=== PATIENT | female | born 1925 | race Caucasian/White ===

== ENCOUNTER 2016-10-10 08:48 | Inpatient (IN) | payer OTHER, MEDICARE ==
[~2016-10-10] VITALS: Ht 165.1 cm; Wt 85.7 kg
[~2016-10-10 08:48] MED LIST: CHLORTHALIDONE25 M1 PO; CIPRO 500MG TA500 MG PO; COLACE100 M1 PO; DURAGESIC25 MCG TOP; ENDOCET 325 MG-1 TA1 PO; FENTANYL1 EAC4 TOP; FOLIC ACID1 M1 PO; GABAPENTIN800 M1 PO; K-TAB ER20 MEQ PO; LASIX20 MG PO; LASIX40 M1 PO; LIDODERM1 EACH TOP; LOPRESSOR100 M1 PO; MAGNESIUM OXID400 M1 PO; METHOTREXA50 MG/2 ML PO; METHOTREXATE 22.5 MG PO; METHOTREXATE2.5 M2 PO; METHOTREXATE2.5 MG PO; METHOTREXATE25 MG/M2 PO; MILK OF MAGNESI30 ML PO; MONUROL3 GM PO; NEXIUM 40MG40 MG PO; NEXIUM40 M1 PO; OXYCODONE5 MG PO; PRADAXA150 M1 PO; PREDNISONE5 M1 PO; SENNA8.6 M3 PO; SERTRALINE HCL50 MG PO; TYLENOL500 MG PO; VITAMIN D250000 UNIT PO; ZOFRAN ODT4 MG SL
--- NOTE | 2016-10-10 08:59 | ED GENERAL ADULT ---
History of Present Illness General Chief Complaint: Dyspnea (COPD, CHF, Other) Stated Complaint: BIBA, DIFF BREATHING Source: patient, family, old records, EMS, [facility]10 Exam Limitations: no limitations Vital Signs & Intake/Output Vital Signs & Intake/Output Vital Signs Date Time Temp Pulse Resp B/P B/P Pulse O2 O2 Flow FiO2 Mean Ox Delivery Rate 10/10 1006 99.1 88 12 110/63 94 Nasal 2.0L Cannula 10/10 0923 92 Nasal 3.0L Cannula 10/10 0855 99.2 94 2 110/58 92 Non 2.0L ReBreather Allergies Coded Allergies: Sulfa (Sulfonamide Antibiotics) (UNKNOWN 10/10/16) Reconcile Medications Alprazolam (Xanax) 0.25 MG TABLET 0.5 TAB PO QPM SLEEP (Reported) Chlorthalidone 25 MG TABLET 0.5 TAB PO DAILY EDEMA (Reported) Dabigatran Etexilate Mesylate (Pradaxa 150 MG) 150 MG CAPSULE 1 CAP PO BID AFIB (Reported) Docusate Sodium (Colace) 100 MG CAPSULE 2 CAP PO DAILY CONSTIPATION (Reported ) Docusate Sodium (Colace) 100 MG CAPSULE 1 CAP PO QPM CONSTIPATION (Reported) Ergocalciferol (Vitamin D2) (Vitamin D2) 50,000 UNIT CAPSULE 1 CAP PO Q30D VITAMIN SUPPORT (Reported) Esomeprazole (Nexium) 40 MG CAPSULE.DR 1 CAP PO DAILY ACID REFLUX (Reported) Fentanyl 75 MCG/HOUR PATCH.TD72 1 PAT TOP Q3D PAIN (Reported) Folic Acid 1 MG TABLET 1 TAB PO DAILY SUPPLEMENT (Reported) Furosemide (Lasix) 40 MG TABLET 1 TAB PO DAILY WATER PILL (Reported) Gabapentin 800 MG TABLET 1 TAB PO TID NEUROPATHY (Reported) Lidocaine (Lidoderm) 5 % ADH..PATCH 1 PAT TOP DAILY PAIN (Reported) may wear up to 12 hours Magnesium Oxide 400 MG TABLET 1 TAB PO DAILY SUPPLEMENT (Reported) Melatonin 3 MG TABLET 2 TAB PO QPM SLEEP (Reported) Methotrexate 2.5 MG TABLET 6 TAB PO QWED ARTHRITIS (Reported) Metoprolol Tartrate (Lopressor) 100 MG TABLET 1 TAB PO BID AFIB (Reported) Potassium Chloride (K-Tab ER) 20 MEQ TABLET.ER 2 TAB PO BID SUPPLEMENT ( Reported) Prednisone 5 MG TABLET 1 TAB PO DAILY ARTHRITIS (Reported) Sennosides (Senna) 8.6 MG TABLET 1 TAB PO DAILY CONSTIPATION (Reported) Sertraline HCl 50 MG TABLET 2.5 TAB PO DAILY DEPRESSION (Reported) Triage Note: PT BIBA FROM [facility] FOR CHANGE IN MENTAL STATUS, SOB AND VOMITING. PT DENIES ABDOMINAL PAIN. PER [facility], PT WAS DIFFICULT TO AROUSE THIS AM. PER EMS PT 02 SATS WERE IN MID 80'S UPON THEIR ARRIVAL. PLACED ON NRB AND SATS IMPROVED. QUESTION OF ASPIRATION Triage Nurses Notes Reviewed? yes HPI: Patient sent in from her extended care facility for evaluation of lethargy, vomiting and shortness of breath. This morning on rounds a noticed that she was very hard to arouse. Patient then began dry heaving and vomiting. Patient then became short of breath. Patient is chronically on 2 L of oxygen. Patient was increased to 4 L. When EMS arrived her sats were 90% on 4 L. They placed her on a nonrebreather 15 L and the patient became more responsive. Patient continued to try use. Patient's only complaint is feeling nauseous. Patient is not answering any other questions. Patient is moaning. Patient is moving all 4 extremities but not following commands. ED Sepsis Exam Date of Focused Sepsis Exam: 10/10/16 Time of Focused Sepsis Exam: 919 Sepsis Cardiac Exam: AFIB Sepsis Resp Exam: COURSE CRACKLES Sepsis Cap Refill Exam: <2 Sec Sepsis Peripheral Pulse Exam: Normal Sepsis Peripheral Pulse Location: Radial Sepsis Skin Color Exam: Normal for Ethnicity Skin Temp/Moisture Exam: Hot/Dry Past History Travel History Traveled to [place] past 21 day No Medical History Any Pertinent Medical History? 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 FATHER, , Age 60+; Cause: Throat cancer. Relation not specified for: Diabetes mellitus (DM) Fam hx-ischem heart disease Hx Contributory? No Review of Systems Review of Systems Constitutional: Reports: see HPI, fever. Respiratory: Reports: see HPI, short of breath. GI: Reports: see HPI, vomiting. Physical Exam Physical Exam General Appearance: well developed/nourished, alert, awake, anxious, moderate distress Head: atraumatic, normal appearance Eyes: Bilateral: PERRL, EOMI, other (ANICTERIC). Ears, Nose, Throat: normal pharynx, DRY MUCOSA Neck: normal inspection, supple, full range of motion Respiratory: normal breath sounds, chest non-tender, no respiratory distress, lungs clear Cardiovascular: regular rate/rhythm, normal peripheral pulses Gastrointestinal: normal bowel sounds, soft, non-tender, no organomegaly Back: normal inspection, normal range of motion Extremities: normal inspection, normal capillary refill, normal range of motion, pedal edema Neurologic/Psych: no motor/sensory deficits, awake, alert, disoriented x 3 Skin: intact, normal color, cyanosis Lymphatic: no anterior cervical ritu Core Measures ACS in differential dx? No CVA/TIA Diagnosis: No Severe Sepsis Present: Yes Septic Shock Present: No Progress Differential Diagnoses I considered the following diagnoses in my evaluation of the patient: [ ASPIRATION PNEUMONIA, SEPSIS, UTI, AMI, CHOLECYSTITIS] Plan of Care: Orders Procedure Date/time Status LACTIC ACID 10/10 1159 Active ARTERIAL BLOOD GAS (GEN) 10/10 0859 Complete Telemetry/Glass Or Mirror Inspector 10/10 0859 Active Day, Insertion/Removal/Asses 10/10 0859 Active CULTURE,URINE 10/10 0859 Active BLOOD CULTURE 10/10 0859 Active URINALYSIS 10/10 0859 Active TROPONIN LEVEL 10/10 0859 Complete LIPASE 10/10 0859 Complete LACTIC ACID 10/10 0859 Complete COMPREHENSIVE METABOLIC PANEL 10/10 0859 Complete CBC WITHOUT DIFFERENTIAL 10/10 0859 Complete B-TYPE NATRIURETIC PEP (BNP) 10/10 0859 Complete AMYLASE 10/10 0859 Complete EKG 10/10 0849 Active Laboratory Tests 10/10/16 1012: Urine Color Pending, Urine Clarity Pending, Urine pH Pending, Ur Specific Dieterich Pending, Urine Protein Pending, Urine Ketones Pending, Urine Nitrite Pending, Urine Bilirubin Pending, Urine Urobilinogen Pending, Ur Leukocyte Esterase Pending, Ur Microscopic SEDIMENT EXAMINED, Urine RBC Pending, Urine Hemoglobin Pending, Urine Glucose Pending 10/10/16 0938: pH 7.39, pCO2 73 *H, pO2 59 L, HCO3 43 H, ABG O2 Sat (Measured) 90.0 L, P-50 (Temp Corrected) N, Carboxyhemoglobin 1.4 L, O2 Concentration % 4LPM, O2 Delivery Method NC, Phlebotomy Draw Site RIGHT BRACHIAL 10/10/16 0910: Anion Gap 6, Estimated GFR > 60, BUN/Creatinine Ratio 24.0, Glucose 151 H, Lactic Acid 1.3, Calcium 8.5, Total Bilirubin 0.6, AST 12 L, ALT 24, Alkaline Phosphatase 60, Troponin I < 0.01, Yxk-Y-Eyagybhphyq Pept 2440 H, Total Protein 5.7 L, Albumin 3.2 L, Globulin 2.5, Albumin/Globulin Ratio 1.3, Amylase 75, Lipase 199, CBC w Diff NO MAN DIFF REQ, RBC 3.63 L, MCV 88.3, MCH 27.1, RDW 18.3 H, MPV 9.0, Gran % 86.5 H, Lymphocytes % 4.8 L, Monocytes % 5.6, Eosinophils % 2.6, Basophils % 0.5, Absolute Granulocytes 10.7 H, Absolute Lymphocytes 0.6 L, Absolute Monocytes 0.7 H, Absolute Eosinophils 0.3, Absolute Basophils 0.1, PUBS MCHC 30.8 L Microbiology 10/10 1012 URINE ROUT: Urine Culture - RECD 10/11 919 BLOOD: Blood Culture - RECD 10/10 09 BLOOD: Blood Culture - RECD Diagnostic Imaging: Viewed by Me: Radiology Read. Discussed w/RAD: Radiology Read. CXR Impression: PATIENT: ERIC DARLING PRESENT AGE: 89 PATIENT ACCOUNT NO: [id number] : [birth year] LOCATION: [facility] ORDERING PHYSICIAN: JULIETTE RUSSO MD SERVICE DATE: 10/10/16 EXAM TYPE: RAD - XRY- PORTABLE CHEST XRAY EXAMINATION: XR PORTABLE CHEST CLINICAL INFORMATION: Shortness of breath, fever and vomiting. COMPARISON: CXR from 02/07/2014 TECHNIQUE: Portable AP view of the chest was obtained. FINDINGS: Lungs are hypoinflated resulting in crowding of bronchovascular structures in the bases. There is wall calcification of the tracheobronchial tree - a relatively common finding in elderly patients. This may partially account for interstitial prominence in both lungs. There are linear areas of discoid atelectasis within the right lung base and lingula. No focal airspace opacification is identified. No pulmonary edema or pleural effusion. Cardiac silhouette is mildly enlarged and the left pericardial fat pad extends toward the costophrenic angle. There is prominent fat within the superior mediastinum. Thoracic aorta is calcified. Bone density is diffusely decreased and there is chronic, severe osteoarthritis of glenohumeral joints. No pneumoperitoneum. IMPRESSION: 1. Lungs are suboptimally evaluated due to patient body habitus and hypoinflation. 2. Mild atelectasis within the lung bases. No overt pneumonia. 3. Mild cardiomegaly. DICTATED BY: DUNG CANAS MD DATE/TIME DICTATED:10/10/161002 OTR OWNER OPERATOR:MARCUS DATE/TIME TRANSCRIBED:10/10/161002 CONFIDENTIAL, DO NOT COPY WITHOUT APPROPRIATE AUTHORIZATION. <Electronically signed in Other Vendor System> SIGNED BY: DUNG CANAS MD 10/10/16 1011 Initial ED EKG: AFIB, nonspecific ST T wave chg Prior EKG: unchanged Rhythm Strip: atrial fibrillation Comments: ACCORDING TO LAST DISCHARGE SUMMARY, PT HAS A HISTORY OF CHF. UNKNOWN WHAT HER LAST EF WAS. SHE HAS ALSO BEEN STARTED ON O2 SINCE HER LAST VISIT. WILL GIVE BOLUSES OF FLUIDS BUT WANT TO GO EASY UNTIL WE HAVE A BETTER UNDERSTANDING OF HER FLUID STATUS. Departure Departure Disposition: STILL A PATIENT Condition: Guarded Clinical Impression Primary Impression: Aspiration pneumonia Referrals: ROJELIO SAUCEDO,OLIVIA Early (PCP/Family) Departure Forms: Customer Survey General Discharge Information Admission Note Spoke With: RAPHAEL TROY MD Documentation of Exam: Documentation of any treatments & extenuating circumstances including Concerns Regarding Discharge (functional status, medication knowledge or non-compliance, living conditions, etc.) that warrant an admission rather than observation: [iv abx, pulm consult, pt is requiring increased o2 demands, ] Critical Care Note Critical Care Note Critical Care Time: non-applicable
[2016-10-10] MEDS ORDERED: COLACE100 M1 PO (09:13)
[2016-10-10] MEDS ORDERED: MELATONIN3 M4 PO (09:15)
[2016-10-10] MEDS ORDERED: XANAX0.25 M1 PO (09:17)
[2016-10-10 09:24] LABS: ABSOLUTE BASOPHIL COUNT 0.1 /CUMM (0.0-0.2); ABSOLUTE EOSINOPHIL COUNT 0.3 /CUMM (0.0-0.7); ABSOLUTE GRANULOCYTE CT 10.7 /CUMM (1.4-6.5); ABSOLUTE LYMPH COUNT 0.6 /CUMM (1.2-3.4); ABSOLUTE MONOCYTE COUNT 0.7 /CUMM (0.10-0.60); BASOPHIL % 0.5 % (0.0-2.0); EOSINOPHIL % 2.6 % (0-5); MEAN CORPUSCULAR HGB 27.1 PG (27.0-31.0); MEAN CORPUSCULAR HGB CONC 30.8 G/DL (33.0-37.0); MEAN CORPUSCULAR VOLUME 88.3 FL (81.0-99.0); PLATELET COUNT 269 /CUMM (130-400); RBC DISTRIBUTION WIDTH 18.3 % (11.5-14.5); WHITE BLOOD CELL COUNT 12.4 /CUMM (4.8-10.8)
[2016-10-10 09:41] LABS: GRANULOCYTE % 86.5 % (42.2-75.2)
[2016-10-10 09:43] LABS: RED BLOOD CELL CT 3.63 /CUMM (4.20-5.40)
--- NOTE | 2016-10-10 10:11 | RADIOLOGY REPORT ---
EXAMINATION: XR PORTABLE CHEST CLINICAL INFORMATION: Shortness of breath, fever and vomiting. COMPARISON: CXR from 02/07/2014 TECHNIQUE: Portable AP view of the chest was obtained. FINDINGS: Lungs are hypoinflated resulting in crowding of bronchovascular structures in the bases. There is wall calcification of the tracheobronchial tree - a relatively common finding in elderly patients. This may partially account for interstitial prominence in both lungs. There are linear areas of discoid atelectasis within the right lung base and lingula. No focal airspace opacification is identified. No pulmonary edema or pleural effusion. Cardiac silhouette is mildly enlarged and the left pericardial fat pad extends toward the costophrenic angle. There is prominent fat within the superior mediastinum. Thoracic aorta is calcified. Bone density is diffusely decreased and there is chronic, severe osteoarthritis of glenohumeral joints. No pneumoperitoneum. IMPRESSION: 1. Lungs are suboptimally evaluated due to patient body habitus and hypoinflation. 2. Mild atelectasis within the lung bases. No overt pneumonia. 3. Mild cardiomegaly.
--- NOTE | 2016-10-10 12:17 | History & Physical ---
SANDRO PEDROZA MD 10/10/16 1216: General Information and HPI MD Statement: I have seen and personally examined ERIC DARLING and documented this H&P. The patient is a 89 year old F who presented with a patient stated chief complaint of [episode of unresponsiveness followed by multiple episode of vomiting and hypoxia]. Source of Information: patient, family, old records Exam Limitations: no limitations, DEAFNESS History of Present Illness: This is 89-year-old obese female with past medical history of hypertension, diastolic heart failure, A. fib on PREDAXA, rheumatoid arthritis maintain on methotrexate and chronic prednisone, anemia, ESBL UTI, spinal stenosis on chronic pain medication including fentanyl patch, ? History of emphysema was sent in from [facility] after she found lethargic and unresponsive followed by multiple episode of nausea and bilious nonbloody vomiting and hypoxia. This morning on routine evaluation by nursing staff patient found minimally responsive to verbal command. Upon waking her up, she became nauseous and started throwing up initially brownish bilious nonbloody vomiting followed by multiple episode of yellowish nonbloody vomiting. After that patient started having dry heaving and became hypoxic. Her oxygen increased to 4 L (at baseline uses 2 L), EMS called, upon arrival noted saturating 90% on 4 L supplemental O2. Patient was put on nonrebreather mask and was brought to the ER for further evaluation. On exam in ER patient noted somnolent but easily aroused on verbal command. Patient had partial deafness so it was hard to communicate with her but she could hear on yelling. Patient denied any recent fever, chills, productive cough, abdominal pain. She complains of dry heaving and nausea but feels better after receiving medication in ER. She claims she was treated with antibiotic for UTI probably 1-2 months prior to admission and was also evaluated for pneumonia probably a month ago but x-ray noted negative. She denies any urinary burning, dysuria. She has intermittent urinary frequency which is unchanged from the past. She is alert and oriented 3. Patient's daughter and son (POA) were at bedside. Of note patient has been on fentanyl patch for her spinal stenosis, and claims her episode of being unresponsiveness are quite often for past couple months. Allergies/Medications Allergies: Coded Allergies: Sulfa (Sulfonamide Antibiotics) (UNKNOWN 10/10/16) Home Med list Alprazolam (Xanax) 0.25 MG TABLET 0.5 TAB PO QPM SLEEP (Reported) Chlorthalidone 25 MG TABLET 0.5 TAB PO DAILY EDEMA (Reported) Dabigatran Etexilate Mesylate (Pradaxa 150 MG) 150 MG CAPSULE 1 CAP PO BID AFIB (Reported) Docusate Sodium (Colace) 100 MG CAPSULE 2 CAP PO DAILY CONSTIPATION (Reported ) Docusate Sodium (Colace) 100 MG CAPSULE 1 CAP PO QPM CONSTIPATION (Reported) Ergocalciferol (Vitamin D2) (Vitamin D2) 50,000 UNIT CAPSULE 1 CAP PO Q30D VITAMIN SUPPORT (Reported) Esomeprazole (Nexium) 40 MG CAPSULE.DR 1 CAP PO DAILY ACID REFLUX (Reported) Fentanyl 75 MCG/HOUR PATCH.TD72 1 PAT TOP Q3D PAIN (Reported) Folic Acid 1 MG TABLET 1 TAB PO DAILY SUPPLEMENT (Reported) Furosemide (Lasix) 40 MG TABLET 1 TAB PO DAILY WATER PILL (Reported) Gabapentin 800 MG TABLET 1 TAB PO TID NEUROPATHY (Reported) Lidocaine (Lidoderm) 5 % ADH..PATCH 1 PAT TOP DAILY PAIN (Reported) may wear up to 12 hours Magnesium Oxide 400 MG TABLET 1 TAB PO DAILY SUPPLEMENT (Reported) Melatonin 3 MG TABLET 2 TAB PO QPM SLEEP (Reported) Methotrexate 2.5 MG TABLET 6 TAB PO QWED ARTHRITIS (Reported) Metoprolol Tartrate (Lopressor) 100 MG TABLET 1 TAB PO BID AFIB (Reported) Potassium Chloride (K-Tab ER) 20 MEQ TABLET.ER 2 TAB PO BID SUPPLEMENT ( Reported) Prednisone 5 MG TABLET 1 TAB PO DAILY ARTHRITIS (Reported) Sennosides (Senna) 8.6 MG TABLET 1 TAB PO DAILY CONSTIPATION (Reported) Sertraline HCl 50 MG TABLET 2.5 TAB PO DAILY DEPRESSION (Reported) Compliance With Home Meds: FAIR Past History Travel History Traveled to [place] past 21 day No Medical History Neurological: GENERAL WEAKNESS EENT: NONE Cardiovascular: AFIB, CHF, hypertension, ANEMIA HEART FAILURE Respiratory: NONE Gastrointestinal: GERD Hepatic: NONE Renal: NONE Musculoskeletal: osteoarthritis, rheumatoid arthritis, spinal stenosis, ARTHRITIS Psychiatric: NONE Endocrine: NONE KENNEL ASSISTANT/Reproductive: UTI, UROSEPSIS History of MRSA: No History of VRE: No History of CDIFF: No Isolation History: Contact (ESBL) Pneumonia Vaccine: 03/30/07 Influenza Vaccine: 02/27/13 Surgical History Surgical History: cholecystectomy, hernia repair-inguinal Past Family/Social History Family History Relations & Conditions if any MOTHER, , Age 60+; Cause: Myocardial infarct. FATHER, , Age 60+; Cause: Throat cancer. Relation not specified for: Diabetes mellitus (DM) Fam hx-ischem heart disease Psychosocial History Where do you live? [facility] Services at Home: Physical Therapy ETOH Use: denies use Illicit Drug Use: denies illicit drug use Living Will? yes Power of Associate Director Of Development/HCP? yes Name of POA/HCP: son (david darling) Functional Ability ADLs Needs Assist: dressing, eating, toileting, bathing. Ambulation: walker Review of Systems Review of Systems Constitutional: Reports: see HPI. Denies: chills, fever. EENTM: Reports: hearing changes. Denies: visual changes. Cardiovascular: Denies: chest pain, orthopena, palpitations, peripheral edema, syncope. Respiratory: Reports: cough, short of breath. Denies: sputum production, wheezing. GI: Reports: nausea, vomiting. Denies: abdominal pain. Genitourinary: Reports: frequency. Denies: dysuria, urgency. Musculoskeletal: Reports: back pain. Skin: Denies: rash. Neurological/Psychological: Denies: headache, numbness. Hematologic/Endocrine: Denies: bleeding. Exam & Diagnostic Data Last 24 Hrs of Vital Signs/I&O Vital Signs Date Time Temp Pulse Resp B/P B/P Pulse O2 O2 Flow FiO2 Mean Ox Delivery Rate 10/10 1109 99.4 88 20 111/76 96 Venti Mask 10/10 1006 99.1 88 12 110/63 94 Nasal 2.0L Cannula 10/10 0923 92 Nasal 3.0L Cannula 10/10 0855 99.2 94 2 110/58 92 Non 2.0L ReBreather Intake & Output 10/10 1600 10/10 0800 10/10 0000 Intake Total 500 Output Total 300 Balance 200 Intake, IV 500 Output, Urine 300 Patient 189 lb Weight Weight Reported by Patient Measurement Method Physical Exam General Appearance Alert, Oriented X3, Cooperative, No Acute Distress Skin No Rashes Skin Temp/Moisture Exam: Warm/Dry Sepsis Skin Exam (color): Normal for Ethnicity HEENT Atraumatic, PERRLA, EOMI, Mucous Membr. moist/pink Neck Supple, No JVD Lymphatic Cervical nl Cardiovascular Normal S1, Normal S2, No Murmurs Lungs Normal Air Movement, bilateral crackles Abdomen Normal Bowel Sounds, Soft, No Tenderness Neurological Normal Speech, Strength at 5/5 X4 Ext, Normal Tone, Sensation Intact, Cranial Nerves 3-12 NL Extremities Normal Pulses, trace pedal edema Vascular Normal Pulses, Pulses Symmetrical Sepsis Peripheral Pulse Location: Posterior Tibialis Sepsis Peripheral Pulse Exam: Bounding Last 24 Hrs of Labs/Jerry: Laboratory Tests 10/10/16 1012: Urine Color YEL, Urine Clarity CLDY H, Urine pH 6.5, Ur Specific [place] 1.020, Urine Protein NEG, Urine Ketones NEG, Urine Nitrite POS H, Urine Bilirubin NEG, Urine Urobilinogen 0.2, Ur Leukocyte Esterase SMALL H, Ur Microscopic SEDIMENT EXAMINED, Urine RBC RARE, Urine WBC 5-10 H, Urine Bacteria PACKD H, Urine Hemoglobin TRACE-LYSED, Urine Glucose NEG 10/10/16 0938: pH 7.39, pCO2 73 *H, pO2 59 L, HCO3 43 H, ABG O2 Sat (Measured) 90.0 L, P-50 (Temp Corrected) N, Carboxyhemoglobin 1.4 L, O2 Concentration % 4LPM, O2 Delivery Method NC, Phlebotomy Draw Site RIGHT BRACHIAL 10/10/16 0910: Anion Gap 6, Estimated GFR > 60, BUN/Creatinine Ratio 24.0, Glucose 151 H, Lactic Acid 1.3, Calcium 8.5, Total Bilirubin 0.6, AST 12 L, ALT 24, Alkaline Phosphatase 60, Troponin I < 0.01, Aps-R-Uiwiqsefsts Pept 2440 H, Total Protein 5.7 L, Albumin 3.2 L, Globulin 2.5, Albumin/Globulin Ratio 1.3, Amylase 75, Lipase 199, CBC w Diff NO MAN DIFF REQ, RBC 3.63 L, MCV 88.3, MCH 27.1, RDW 18.3 H, MPV 9.0, Gran % 86.5 H, Lymphocytes % 4.8 L, Monocytes % 5.6, Eosinophils % 2.6, Basophils % 0.5, Absolute Granulocytes 10.7 H, Absolute Lymphocytes 0.6 L, Absolute Monocytes 0.7 H, Absolute Eosinophils 0.3, Absolute Basophils 0.1, PUBS MCHC 30.8 L Microbiology 10/10 1012 URINE ROUT: Urine Culture - RECD 10/11 919 BLOOD: Blood Culture - RECD 10/10 0810 BLOOD: Blood Culture - RECD Diagnostic Data EKG Results Atrial fibrillation at rate of 80s, normal axis, no acute ST-T changes, QTC 458 CXR Results Chest x-ray was poor quality due to hypoinflation of the lungs, noted mild atelectatic days in lung bases, mild cardiomegaly without any signs of pneumonia Assessment/Plan Assessment: This is 89-year-old obese female with past medical history of diastolic heart failure, A. fib, rheumatoid arthritis on chronic methotrexate and prednisone, anemia, ESBL UTI, spinal stenosis was sent in from [facility] with chief complaint of unresponsiveness followed by an episode of bilious vomiting followed by an episode of hypoxia with significant increase in O2 requirement, and WBC suggestive of mild leukocytosis likely suggestive of aspiration pneumonitis/ pneumonia. Patient also noted having dirty urine on urinalysis which could be asymptomatic bacteriuria with chronic colonization of ESBL in absence of any urinary symptoms or fever. 1. Acute on chronic hypoxic respiratory failure due to Aspiration pneumonia Admit to general medicine floor Continue supplemental O2 Keep O2 sat above 92% TRC Continue IV Unasyn for suspected aspiration pneumonia/pneumonitis Follow-up blood cx and urine strep and Legionella Follow-up sputum culture Aspiration precaution Swallow eval in a.m., patient passed bedside swallow, will continue regular diet with aspiration precaution If patient remains hypoxic consider CTA chest to rule out PE although it's unlikely due to as patient is on anticoagulation 2. Altered mental status - Now improved - Likely in setting of opiates as patient is on fentanyl patch for spinal stenosis - Monitor mental status, if noted further episode of change in mental status consider decreasing the dose of fentanyl patch or try nonopiate analgesics 3. Acute gastroenteritis - Patient received 500 mL fluid in ER -Continue Zofran when necessary for nausea - Aspiration precaution 4. Asymptomatic bacteriuria - Patient denies any fever or urinary symptoms - UA suggest cloudy urine with positive nitrite and small leukocyte esterase, WBC 5-10 and packed bacteria - Patient has history of ESBL UTI, suspect ESBL for urine culture obtain in ER - But due to no symptoms, I suspect this is colonization which need not to be treated at this point - But monitor for any signs of infection like fever,, leukocytosis, change in mental status, urinary burning or frequency---> if that happens patient may need to be started on antibiotic covering ESBL likely meropenem 5. Normocytic anemia - Likely anemia of chronic disease due to rheumatoid arthritis - H&H stable - Monitor H&H 6. History of congestive heart failure - Patient on physical exam noted having bilateral crackles and trace pedal edema , lab suggests elevated proBNP - We'll give 1 dose of IV Lasix, and continue home dose Lasix 40 mg daily from tomorrow morning - Strict NICOLE's - Daily weight - Keep K > 4, mg > 2 repeat as needed 7. Rheumatoid arthritis - Continue weekly dose of methotrexate 15 mg - Continue prednisone 5 mg daily 8. Spinal stenosis - Continue pain management with fentanyl patch, Lidoderm patch, gabapentin - Bowel regimen to avoid constipation 9. Hypertension Continue home dose chlorthalidone, Lasix and metoprolol 10. Atrial fibrillation - Continue metoprolol 100 mg twice a day for rate control - Continue PRADEXA 150 mg twice a day for anticoagulation 11. Anxiety/depression Continue Xanax 0.125 at bedtime and Zoloft 2.5 mg daily 12. DVT prophylaxis on pradaxa 13. DNR/DNI As Ranked By This Provider Problem List: 1. Aspiration pneumonia 2. Rheumatoid arthritis 3. Bacteriuria 4. Depression 5. Atrial fibrillation Core Measures/Miscellaneous Acute Coronary Syndrome ACS Diagnosis: No Cerebrovascular Accident CVA/TIA Diagnosis: No Congestive Heart Failure CHF Diagnosis: No Venous Thromboembolism VTE Risk Factors: Age > 40, Immobility, paresis No [facility] VTE prophylaxis d/t: No contraindications No VTE Pharm Prophylaxis d/t: No contraindications VTE Diagnosis: No VTE Type: NONE VTE Confirmed by (Test): NONE Severe Sepsis Severe Sepsis Present: Yes Septic Shock Septic Shock Present: No Miscellaneous Documentation Attending Case Discussed With: RAPHAEL TROY MD Primary Care Physician: OLIVIA SERRATO MD Patient sees these Specialists none Level of Patient Care: General Medicine Resident Review Statement Resident Statement: examined this patient, discussed with family, reviewed EMR data (avail), reviewed images, amended to note Other Findings: see hpi RAPHAEL TROY MD 10/10/160: Attending MD Review Statement Attending Statement Attending Statement: examined this patient, discuss w/resident/PA/MEN'S LOCKER ROOM ATTENDANT, agreed w/resident/PA/MEN'S LOCKER ROOM ATTENDANT, reviewed EMR data (avail) Attending Assessment/Plan: Hypoxic respiratory failure after episodes of vomiting with mild left shift and a negative chest xray likely suggest aspiration pneumonia. She will be admitted for IV antibiotics Unasyn and if she persist to be hypoxic we may then consider CT chest or possibly CTA.
[2016-10-10 13:45] VITALS: BP 138/56
[2016-10-10 21:47] VITALS: BP 110/62
--- NOTE | 2016-10-10 22:19 | Admission Certification ---
Admission Certification Certification Statement - As attending physician, I certify that at the time of - admission, based on clinical presentation, severity of - symptoms, need for further diagnostic testing and - therapeutic interventions, and risk of adverse outcomes - without in-hospital treatment, in my clinical assessment, - this patient requires an acute hospital stay for a minimum - of two nights or longer. I have also considered psychsocial - factors such as support system, advanced age, financial - issues, cognitive issues, and failed out-patient treatments, - past re-admission history, safety of patient, and lack of - compliance as applicable. Specific rationale supporting this admission is: Aspiration pneumonia
[2016-10-11 06:16] VITALS: BP 110/68
--- NOTE | 2016-10-11 07:34 | PN- Housestaff ---
Subjective Follow-up For: vomitting and dyspnea Complaints: nausea Subjective: patient followed up by me today. this am, patient was still nauseous and was given zofran, which later subsided. she was at her baseline oxygen level, and did not have any other complaints. she was not in distress and was able to speak in full sentences. Review of Systems Constitutional: Reports: see HPI. Objective Last 24 Hrs of Vital Signs/I&O Vital Signs Date Time Temp Pulse Resp B/P B/P Pulse O2 O2 Flow FiO2 Mean Ox Delivery Rate 10/11 1920 96 Nasal 3.0L Cannula 10/11 1445 98.0 78 20 112/64 93 Nasal 3.0L Cannula 10/11 1021 67 110/68 10/11 0841 96 Nasal 3.0L Cannula 10/11 0800 96 Nasal 3.0L Cannula 10/11 0616 98.0 67 20 110/68 98 10/11 0402 98 Venti Mask 50% 10/11 0000 96 Venti Mask 50% 10/10 2303 Venti Mask 50% 10/10 2227 90 110/62 Intake & Output 10/11 1600 10/11 0800 10/11 0000 Intake Total 720 390 100 Output Total 436 110 5202 Balance 170 140 -1100 Intake, IV 120 150 100 Intake, Oral 600 240 Number 0 1 Bowel Movements Output, Urine 151 585 8337 Physical Exam General Appearance: Alert, Oriented X3, Cooperative, No Acute Distress Cardiovascular: Regular Rate, Normal S1, Normal S2 Lungs: Clear to Auscultation, Normal Air Movement Abdomen: Normal Bowel Sounds, Soft, No Tenderness Neurological: grossly intact Assessment/Plan Assessment: This is 89-year-old obese female with past medical history of diastolic heart failure, A. fib, rheumatoid arthritis on chronic methotrexate and prednisone, anemia, ESBL UTI, spinal stenosis was sent in from [facility] with chief complaint of unresponsiveness followed by an episode of bilious vomiting followed by an episode of hypoxia with significant increase in O2 requirement, and WBC suggestive of mild leukocytosis likely suggestive of aspiration pneumonitis/ pneumonia. Patient also noted having dirty urine on urinalysis which could be asymptomatic bacteriuria with chronic colonization of ESBL in absence of any urinary symptoms or fever. 1. Acute on chronic hypoxic respiratory failure, possibly due to Aspiration pneumonia, Gram negative bacteria cannot be ruled out currently; getting better today -continue monitoring in general medicine floor -Continue supplemental O2 -Keep O2 sat above 92% -TRC -Continue IV Unasyn for suspected aspiration pneumonia/pneumonitis -Follow-up blood cx and urine strep and Legionella -Follow-up sputum culture -continue Aspiration precaution -patient passed swallow eval, is on regular diet currently - repeating a CXR, and if this shows PNA continue abx else, will consider stopping abx if no fever, leucocytosis, and no more resp distress, as she is on 3L/min oxygen at home 2. Altered mental status - Now improved - Likely in setting of opiates as patient is on fentanyl patch for spinal stenosis - decreased fentanyl dose from 75 to 50 today - Monitor mental status, if noted further episode of change in mental status consider decreasing the dose of fentanyl patch or try nonopiate analgesics 3. Acute gastroenteritis - Patient received 500 mL fluid in ER - Continue Zofran when necessary for nausea - continue Aspiration precaution 4. Asymptomatic bacteriuria - Patient denies any fever or urinary symptoms - UA suggest cloudy urine with positive nitrite and small leukocyte esterase, WBC 5-10 and packed bacteria - Patient has history of ESBL UTI, suspect ESBL for urine culture obtain in ER - But due to no symptoms, I suspect this is colonization which need not to be treated at this point - But monitor for any signs of infection like fever,, leukocytosis, change in mental status, urinary burning or frequency---> if that happens patient may need to be started on antibiotic covering ESBL likely meropenem 5. Normocytic anemia - Likely anemia of chronic disease due to rheumatoid arthritis - H&H stable - Monitor H&H 6. History of congestive heart failure - Patient on physical exam noted having bilateral crackles and trace pedal edema , lab suggests elevated proBNP - She received 1 dose of IV Lasix yesterday, and continue home dose Lasix 40 mg daily from this AM - Strict I/O's - Daily weight - Keep K > 4, mg > 2 repeat as needed 7. Rheumatoid arthritis - Continue weekly dose of methotrexate 15 mg - Continue prednisone 5 mg daily 8. Spinal stenosis - Continue pain management with fentanyl patch (decreased dose), Lidoderm patch, gabapentin - Bowel regimen to avoid constipation 9. Hypertension Continue home dose chlorthalidone, Lasix and metoprolol 10. Atrial fibrillation - Continue metoprolol 100 mg twice a day for rate control - Continue PRADEXA 150 mg twice a day for anticoagulation 11. Anxiety/depression Continue Xanax 0.125 at bedtime and Zoloft 2.5 mg daily 12. DVT prophylaxis on pradaxa 13. DNR/DNI Problem List: 1. Nausea & vomiting 2. Acute respiratory failure Pain Ratin Pain Location: back when present Pain Goal: Pain 4 or less Pain Plan: home meds ordered, fentanyl dose reduced today Tomorrow's Labs & Rationales: CBC, BEP to replete lytes
[2016-10-11 08:35] LABS: ABSOLUTE BASOPHIL COUNT 0 /CUMM (0.0-0.2); ABSOLUTE EOSINOPHIL COUNT 0.2 /CUMM (0.0-0.7); ABSOLUTE GRANULOCYTE CT 8.6 /CUMM (1.4-6.5); ABSOLUTE LYMPH COUNT 0.7 /CUMM (1.2-3.4); ABSOLUTE MONOCYTE COUNT 0.7 /CUMM (0.10-0.60); BASOPHIL % 0.3 % (0.0-2.0); EOSINOPHIL % 2.1 % (0-5); HEMATOCRIT 30.2 % (37-47); MEAN CORPUSCULAR HGB 27.4 PG (27.0-31.0); MEAN CORPUSCULAR HGB CONC 31.1 G/DL (33.0-37.0); MEAN CORPUSCULAR VOLUME 88.2 FL (81.0-99.0); MEAN PLATELET VOLUME 9.3 FL (7.4-10.4); PLATELET COUNT 245 /CUMM (130-400); RBC DISTRIBUTION WIDTH 18.2 % (11.5-14.5); RED BLOOD CELL CT 3.42 /CUMM (4.20-5.40); WHITE BLOOD CELL COUNT 10.3 /CUMM (4.8-10.8)
--- NOTE | 2016-10-11 09:24 | PN- Att Addend ---
Attending Addendum Attending Brief Note Patient is awake and alert this morning responding appropriately to all the questions. She remains on 3 L of oxygen which is about her baseline according to the patient. She also reports chronic nausea and vomiting that is intermittent. General Appearance: Alert, No Acute Distress Skin: Grossly normal HEENT: [place] Neck: Supple, No JVD Cardiovascular: Regular Rate, Normal S1, Normal S2, No Murmurs Lungs: Decreased air entry in bilateral basilar crackles Abdomen: Normal Bowel Sounds, Soft, No Tenderness Neurological: Normal Speech, Strength at 5/5 X4 Ext, Cranial Nerves 3-12 NL, Reflexes 2+ Extremities: No Clubbing, No Cyanosis, No Edema Assessment Nausea and vomiting is chronic according to patient and she remains on 3 L of oxygen that is her baseline. It is possible she might have had aspiration pneumonitis secondary to vomiting. We will get a repeat PA lateral x-ray today to rule out pneumonia and plan antibiotics accordingly. Chronic hypercarbia and lethargy likely secondary to combination of COPD and pain medication. We will decreased fentanyl patch to 50 g once daily. Plan Repeat x-ray PA lateral view Decrease fentanyl patch to 50 g once daily Swallow evaluation Decision for antibiotic pending above Aspiration precautions Replete potassium Continue other home medications DVT prophylaxis Current Medications Sig/Dean Start time Last Medication Dose Route Stop Time Status Admin Albuterol Sulfate 3 ML BID 10/11 1000 AC 10/11 INH 0835 Alprazolam 0.125 MG QPM 10/10 2199 AC 10/10 PO 10/179 7 Ampicillin Sodium/ 3,000 MG Q6H 10/10 1600 AC 10/11 Sulbactam Sodium IV 0337 Sodium Chloride 100 ML Ampicillin Sodium/ 0 .STK-MED ONE 10/10 1005 DC Sulbactam Sodium .ROUTE Ampicillin Sodium/ 3,000 MG ONCE ONE 10/10 0945 DC 10/10 Sulbactam Sodium IV 10/10 1014 1006 Sodium Chloride 100 ML Chlorthalidone 12.5 MG DAILY 10/11 1000 AC PO Dabigatran 150 MG BID 10/10 2200 AC 10/10 PO 2226 Dabigatran 150 MG BID 10/10 1153 DC PO Docusate Sodium 200 MG DAILY 10/11 1000 AC PO Fentanyl Citrate 50 MCG Q72H 10/13 2030 AC TOP Fentanyl Citrate 75 MCG Q3D 10/11 1000 DC TOP Fentanyl Citrate 75 MCG Q72H 10/10 2030 DC 10/10 TOP 2041 Folic Acid 1 MG DAILY 10/11 1000 AC PO Furosemide 40 MG DAILY 10/11 1000 AC PO Furosemide 0 .STK-MED ONE 10/10 1224 ID IV Furosemide 40 MG ONCE ONE 10/10 1215 ID 10/10 IV 10/10 1216 1233 Gabapentin 800 MG Q8 10/10 1400 AC 10/11 PO 0542 Heparin Sodium 5,000 UNIT Q8 10/10 1400 CAN (Porcine) SC Lidocaine 1 PAT DAILY 10/11 1000 CAN EXT Lidocaine 1 PAT AT BEDTIME 10/10 2245 AC 10/10 EXT 2307 Magnesium Oxide 400 MG DAILY 10/10 1156 10/10 PO 1627 Melatonin 6 MG QPM 10/10 2200 10/10 PO 2228 Methotrexate 15 MG QWED 10/13 0700 AC PO Metoprolol Tartrate 100 MG BID 10/10 2200 10/10 PO 2227 Omeprazole 40 MG DAILY AC 10/10 1201 AC 10/11 PO 0542 Ondansetron HCl 4 MG Q6P PRN 10/10 1215 10/11 IV 0807 Patient Medication 1 UNIT ONE NR 10/10 1245 [facility] ED 10/10 1300 Patient Medication 1 UNIT ONE NR 10/10 1245 [facility] ED 10/10 1300 Patient Medication 1 UNIT ONE NR 10/10 1245 [facility] ED 10/10 1300 Patient Medication 1 UNIT ONE NR 10/10 1245 [facility] ED 10/10 1300 Potassium Chloride 40 MEQ DAILY 10/10 1157 10/10 PO 1627 Prednisone 5 MG DAILY 10/10 1157 10/10 PO 1628 Senna/Docusate Sodium 1 TAB BID PRN 10/10 1200 AC PO Sertraline HCl 125 MG DAILY 10/10 1158 10/10 PO 1628 Sodium Chloride 500 ML BOLUS ONE 10/10 0915 ID 10/10 IV 10/10 1014 0904 Laboratory Tests 10/11 10/10 10/10 0657 1230 1012 Chemistry Sodium (137 - 145 mmol/L) 140 Potassium (3.5 - 5.1 mmol/L) 3.0 L Chloride (98 - 107 mmol/L) 84 L Carbon Dioxide (mmol/L) Pending Anion Gap (5 - 16) Pending BUN (7 - 17 mg/dL) 13 Creatinine (0.5 - 1.0 mg/dL) 0.6 Estimated GFR (>60 ml/min) > 60 BUN/Creatinine Ratio (7 - 25 %) 21.7 Lactic Acid (0.7 - 2.1 mmol/L) 1.2 Hematology CBC w Diff Pending WBC Pending RBC Pending Hgb Pending Hct Pending MCV Pending MCH Pending RDW Pending Plt Count Pending MPV Pending PUBS MCHC Pending Urines Urine Color (YEL,AMB,STR) YEL Urine Clarity (CLEAR) CLDY H Urine pH (5.0 - 8.0) 6.5 Ur Specific [place] (1.001 - 1.035) 1.020 Urine Protein (NEG,<30 MG/DL) NEG Urine Ketones (NEG) NEG Urine Nitrite (NEG) POS H Urine Bilirubin (NEG) NEG Urine Urobilinogen (0.1 - 1.0 EU/dl) 0.2 Ur Leukocyte Esterase (NEG) SMALL H Ur Microscopic SEDIMENT EXAMINED Urine RBC (0 - 5 /HPF) RARE Urine WBC (0 - 2 /HPF) 5-10 H Urine Bacteria (NEG/NONE) PACKD H Urine Hemoglobin (NEG) TRACE-LYSED Urine Glucose (N MG/DL) NEG 10/10 0938 Blood Gas pH (7.35 - 7.45 PH) 7.39 pCO2 (35 - 45 TORR) 73 *H pO2 (80 - 100 TORR) 59 L HCO3 (21 - 28 MEQ/L) 43 H ABG O2 Sat (Measured) (>96.0 %) 90.0 L P-50 (Temp Corrected) N Carboxyhemoglobin (1.5 - 5.0 %) 1.4 L O2 Concentration % 4LPM O2 Delivery Method NC Miscellaneous Phlebotomy Draw Site RIGHT BRACHIAL Vital Signs Date Time Temp Pulse Resp B/P B/P Pulse O2 O2 Flow FiO2 Mean Ox Delivery Rate 10/11 0841 96 Nasal 3.0L Cannula 10/11 0800 96 Nasal 3.0L Cannula 10/11 0616 98.0 67 20 110/68 98 10/11 0402 98 Venti Mask 50% 10/11 0000 96 Venti Mask 50% 10/10 2303 Venti Mask 50% 10/10 2227 90 110/62 10/10 2147 98.1 94 20 110/62 96 Venti Mask 50% 10/10 1600 94 Venti Mask 50% 10/10 1345 99.1 84 22 138/56 94 Venti Mask 50% 05/ 1336 94 Venti Mask 50% 05/14 1235 99.2 85 18 120/78 97 Venti Mask 50% / 1109 99.4 88 20 111/76 96 Venti Mask 05/ 1006 99.1 88 12 110/63 94 Nasal 2.0L Cannula
--- NOTE | 2016-10-11 10:29 | RADIOLOGY REPORT ---
EXAMINATION: XR CHEST CLINICAL INFORMATION: Follow-up for possible aspiration. COMPARISON: Chest x-ray most recent prior dated 10/10/2016 TECHNIQUE: 2 views of the chest were obtained. FINDINGS: Moderate cardiomegaly. Central pulmonary vascular congestion. Patchy opacity noted again in the left lower lung including retrocardiac region. Evaluation is limited due to patient's body habitus. Findings are compatible with hazy infiltrate or atelectasis. Minimal blunting of the costophrenic sulcus may be secondary to trace fluid or pleural thickening. Severe degenerative changes bilateral shoulders.. IMPRESSION: 1. Stable cardiomegaly and central pulmonary vascular congestion. 2. Stable hazy opacity left lower lung compatible with infiltrate or atelectasis. Trace effusion or pleural thickening.
[2016-10-11 11:44] LABS: GRANULOCYTE % 83.5 % (42.2-75.2)
--- NOTE | 2016-10-11 13:07 | Discharge Summary ---
Visit Information Visit Dates Admission Date: 10/10/16 Discharge Date: 10/16/2016 Hospital Course Course Attending Physician: RAPHAEL TROY MD Primary Care Physician: OLIVIA SERRATO MD Hospital Course: This is 89-year-old obese female with past medical history of diastolic heart failure, A. fib, rheumatoid arthritis on chronic methotrexate and prednisone, anemia, ESBL UTI, spinal stenosis who was sent in from [facility] with chief complaint of unresponsiveness followed by an episode of bilious vomiting followed by an episode of hypoxia with significant increase in O2 requirement, and WBC suggestive of mild leukocytosis likely suggestive of aspiration pneumonitis/ pneumonia. Patient also noted having dirty urine on urinalysis which could be asymptomatic bacteriuria with chronic colonization of ESBL in absence of any urinary symptoms or fever. She was admitted to the general medicine floor and he managed her for the following conditions. Acute on chronic hypoxic respiratory failure Most likely due to Aspiration pneumonia. She received respiratory care and was kept nothing by mouth pending swallow evaluation. Patient passed the formal swallow evaluation and was started on regular foods with good intake without any evidence of aspiration. The patient was started on IV Unasyn for aspiration pneumonia probably aspirated during vomiting episodes. The patient oxygen demand decreased progressively and with the second day she was saturating well on room air. n Altered mental status Patient was observed to be less responsive in the [facility] facility. She was put on aspiration precautions. We saw that the altered mental status can be a result of the opiates and fentanyl patch. We decreased the doses and the patient improved significantly through the course of the stay in the hospital. She will be discharged with reduced pain medication doses. Acute gastroenteritis Patient received 500 mL fluid in ER. She was started on Zofran when necessary for nausea. Aspiration precaution were executed. The patient diarrhea resolved and there was no vomiting during the course of the stay. Asymptomatic bacteriuria On presentation UA was suggestive of urinary tract infection. Patient denied any fever or urinary symptoms. Patient has history of ESBL UTI. Given that the patient was symptomatic on presentation we did not treat her UTI suspect in colonization. The patient was monitored closely for any urinary symptoms OR features suggestive of sepsis development. History of congestive heart failure Patient on physical exam on admission noted to have bilateral crackles and trace pedal edema, lab showed elevated proBNP. The patient received 1 dose of IV Lasix and then continued on home dose Lasix 40 mg daily. She is being discharged to continue with the same medication at home. Rheumatoid arthritis Patient has history of rheumatoid arthritis. She was kept on her home medication weekly dose of methotrexate 15 mg and prednisone 5 mg daily. Spinal stenosis Patient has history of spinal stenosis. He is on chronic pain medications at home. During the course of this admission she was continued on her home medication but her fentanyl patch was reduced to 50 g once daily to address altered mental status which she thought could have been a result of overdose of pain medication. She was continued on her bowel regimen and will be discharged on the same medications. Hypertension Patient has history of hypertension. During the course of this admission she was continued on her home dose chlorthalidone, Lasix and metoprolol. Blood pressure remained stable. She'll be discharged to continue with the same medication at home. Atrial fibrillation Patient has history of atrial fibrillation. During the course of the hospital stay the patient was continued on metoprolol 100 mg twice a day for rate control and PRADEXA 150 mg twice a day for anticoagulation. She is being discharged to continue with the same medications. Anxiety/depression She has history of depression and anxiety. Patient was kept on her home medication Xanax 0.125 at bedtime and Zoloft 2.5 mg daily, she is discharged on same medication. Complications: None Allergies: Coded Allergies: Sulfa (Sulfonamide Antibiotics) (UNKNOWN 10/10/16) Pertinent Lab Results: Laboratory Tests 10/12 10/11 10/10 0730 0657 1230 Chemistry Sodium (137 - 145 mmol/L) Pending 140 Potassium (3.5 - 5.1 mmol/L) Pending 3.0 L Chloride (98 - 107 mmol/L) Pending 84 L Carbon Dioxide (22 - 30 mmol/L) Pending 47 H Anion Gap (5 - 16) Pending 9 BUN (7 - 17 mg/dL) Pending 13 Creatinine (0.5 - 1.0 mg/dL) Pending 0.6 Estimated GFR (>60 ml/min) > 60 BUN/Creatinine Ratio (7 - 25 %) Pending 21.7 Lactic Acid (0.7 - 2.1 mmol/L) 1.2 Hematology CBC w Diff Pending NO MAN DIFF REQ WBC (4.8 - 10.8 /CUMM) Pending 10.3 RBC (4.20 - 5.40 /CUMM) Pending 3.42 L Hgb (12.0 - 16.0 G/DL) Pending 9.4 L Hct (37 - 47 %) Pending 30.2 L MCV (81.0 - 99.0 FL) Pending 88.2 MCH (27.0 - 31.0 PG) Pending 27.4 RDW (11.5 - 14.5 %) Pending 18.2 H Plt Count (130 - 400 /CUMM) Pending 245 MPV (7.4 - 10.4 FL) Pending 9.3 Gran % (42.2 - 75.2 %) 83.5 H Lymphocytes % (20.5 - 51.1 %) 7.2 L Monocytes % (1.7 - 9.3 %) 6.9 Eosinophils % (0 - 5 %) 2.1 Basophils % (0.0 - 2.0 %) 0.3 Absolute Granulocytes (1.4 - 6.5 /CUMM) 8.6 H Absolute Lymphocytes (1.2 - 3.4 /CUMM) 0.7 L Absolute Monocytes (0.10 - 0.60 /CUMM) 0.7 H Absolute Eosinophils (0.0 - 0.7 /CUMM) 0.2 Absolute Basophils (0.0 - 0.2 /CUMM) 0 PUBS MCHC (33.0 - 37.0 G/DL) Pending 31.1 L 10/10 10/10 1012 0938 Blood Gas pH (7.35 - 7.45 PH) 7.39 pCO2 (35 - 45 TORR) 73 *H pO2 (80 - 100 TORR) 59 L HCO3 (21 - 28 MEQ/L) 43 H ABG O2 Sat (Measured) (>96.0 %) 90.0 L P-50 (Temp Corrected) N Carboxyhemoglobin (1.5 - 5.0 %) 1.4 L O2 Concentration % 4LPM O2 Delivery Method NC Miscellaneous Phlebotomy Draw Site RIGHT BRACHIAL Urines Urine Color (YEL,AMB,STR) YEL Urine Clarity (CLEAR) CLDY H Urine pH (5.0 - 8.0) 6.5 Ur Specific [place] (1.001 - 1.035) 1.020 Urine Protein (NEG,<30 MG/DL) NEG Urine Ketones (NEG) NEG Urine Nitrite (NEG) POS H Urine Bilirubin (NEG) NEG Urine Urobilinogen (0.1 - 1.0 EU/dl) 0.2 Ur Leukocyte Esterase (NEG) SMALL H Ur Microscopic SEDIMENT EXAMINED Urine RBC (0 - 5 /HPF) RARE Urine WBC (0 - 2 /HPF) 5-10 H Urine Bacteria (NEG/NONE) PACKD H Urine Hemoglobin (NEG) TRACE-LYSED Urine Glucose (N MG/DL) NEG 10/10 0910 Chemistry Sodium (137 - 145 mmol/L) 142 Potassium (3.5 - 5.1 mmol/L) 3.6 Chloride (98 - 107 mmol/L) 87 L Carbon Dioxide (22 - 30 mmol/L) 49 H Anion Gap (5 - 16) 6 BUN (7 - 17 mg/dL) 12 Creatinine (0.5 - 1.0 mg/dL) 0.5 Estimated GFR (>60 ml/min) > 60 BUN/Creatinine Ratio (7 - 25 %) 24.0 Glucose (65 - 99 mg/dL) 151 H Lactic Acid (0.7 - 2.1 mmol/L) 1.3 Calcium (8.4 - 10.2 mg/dL) 8.5 Total Bilirubin (0.2 - 1.3 mg/dL) 0.6 AST (14 - 36 U/L) 12 L ALT (9 - 52 U/L) 24 Alkaline Phosphatase (<127 U/L) 60 Troponin I (< 0.11 ng/ml) < 0.01 [id number] Pept (<125 pg/mL) 2440 H Total Protein (6.3 - 8.2 g/dL) 5.7 L Albumin (3.5 - 5.0 g/dL) 3.2 L Globulin (1.9 - 4.2 gm/dL) 2.5 Albumin/Globulin Ratio (1.1 - 2.2 %) 1.3 Amylase (30 - 110 U/L) 75 Lipase (23 - 300 U/L) 199 Hematology CBC w Diff NO MAN DIFF REQ WBC (4.8 - 10.8 /CUMM) 12.4 H RBC (4.20 - 5.40 /CUMM) 3.63 L Hgb (12.0 - 16.0 G/DL) 9.9 L Hct (37 - 47 %) 32.0 L MCV (81.0 - 99.0 FL) 88.3 MCH (27.0 - 31.0 PG) 27.1 RDW (11.5 - 14.5 %) 18.3 H Plt Count (130 - 400 /CUMM) 269 MPV (7.4 - 10.4 FL) 9.0 Gran % (42.2 - 75.2 %) 86.5 H Lymphocytes % (20.5 - 51.1 %) 4.8 L Monocytes % (1.7 - 9.3 %) 5.6 Eosinophils % (0 - 5 %) 2.6 Basophils % (0.0 - 2.0 %) 0.5 Absolute Granulocytes (1.4 - 6.5 /CUMM) 10.7 H Absolute Lymphocytes (1.2 - 3.4 /CUMM) 0.6 L Absolute Monocytes (0.10 - 0.60 /CUMM) 0.7 H Absolute Eosinophils (0.0 - 0.7 /CUMM) 0.3 Absolute Basophils (0.0 - 0.2 /CUMM) 0.1 PUBS MCHC (33.0 - 37.0 G/DL) 30.8 L Disposition Summary Disposition Principal Diagnosis: Aspiration pneumonia Altered mental status Additional Diagnosis: Spinal stenosis Hypertension Rheumatoid arthritis Congestive heart failure Atrial fibrillation Discharge Disposition: SNF Discharge Instructions General Discharge Information Code Status: Do Not Resucitate/Intubat Patient's Diet: Regular diet Patient's Activity: As tolerated Follow-Up Instructions/Appts: Please call and make a follow-up with your primary care physician within one week after discharge Medications at Discharge Discharge Medications: Stop taking the following medications: Fentanyl (Fentanyl) 75 MCG/HOUR PATCH.TD72 On the skin Every 3 days Continue taking these medications: Chlorthalidone (Chlorthalidone) 25 MG TABLET 0.5 Tablet ORAL DAILY Comments: Last Taken: 10/16/16 Time: 1100AM Docusate Sodium (Colace) 100 MG CAPSULE 2 Capsule ORAL DAILY Comments: Last Taken: 10/16/16 Time: 1000AM Folic Acid (Folic Acid) 1 MG TABLET 1 Tablet ORAL DAILY Comments: Last Taken: 10/16/16 Time: 1100AM Gabapentin (Gabapentin) 800 MG TABLET 1 Tablet ORAL THREE TIMES DAILY Lidocaine (Lidoderm) 5 % ADH..PATCH 1 Patch On the skin DAILY Instructions: may wear up to 12 hours Comments: Last Taken: 10/16/16 Time: 2200PM Magnesium Oxide (Magnesium Oxide) 400 MG TABLET 1 Tablet ORAL DAILY Comments: Last Taken: 10/16/16 Time: 1100AM Metoprolol Tartrate (Lopressor) 100 MG TABLET 1 Tablet ORAL TWICE DAILY Comments: Last Taken: 10/16/16 Time: 1100AM Potassium Chloride (K-Tab ER) 20 MEQ TABLET.ER 2 Tablet ORAL TWICE DAILY Comments: Last Taken: 10/16/16 Time: 1100AM Dabigatran Etexilate Mesylate (Pradaxa 150 MG) 150 MG CAPSULE 1 Capsule ORAL TWICE DAILY Comments: Last Taken: 10/16/16 Time: 1100AM Prednisone (Prednisone) 5 MG TABLET 1 Tablet ORAL DAILY Comments: Last Taken: 10/16/16 Time: 1100AM Sennosides (Senna) 8.6 MG TABLET 1 Tablet ORAL DAILY Comments: NOT GIVEN Sertraline HCl (Sertraline HCl) 50 MG TABLET 2.5 Tablet ORAL DAILY Comments: Last Taken: 10/15/16 Time: 1100AM Ergocalciferol (Vitamin D2) (Vitamin D2) 50,000 UNIT CAPSULE 1 Capsule ORAL ONCE A MONTH Comments: NOT GIVEN Furosemide (Lasix) 40 MG TABLET 1 Tablet ORAL DAILY Esomeprazole (Nexium) 40 MG CAPSULE.DR 1 Capsule ORAL DAILY Comments: NOT GIVEN Methotrexate (Methotrexate) 2.5 MG TABLET 6 Tablet ORAL EVERY TUESDAY Comments: NOT GIVEN Docusate Sodium (Colace) 100 MG CAPSULE 1 Capsule ORAL Every night Comments: Last Taken: 10/16/16 Time: 1100AM Melatonin (Melatonin) 3 MG TABLET 2 Tablet ORAL Every night Comments: NOT GIVEN Alprazolam (Xanax) 0.25 MG TABLET 0.5 Tablet ORAL Every night Comments: Last Taken: 10/15/16 Time:2200PM Start taking the following new medications: Fentanyl (Fentanyl) 50 MCG/HOUR PATCH.TD72 1 Patch On the skin Every 3 days Qty = 30 No Refills Comments: FENTANYL PATCH PLACED 10/14/16 @1330PM Copies To: RAPHAEL TROY MD
[2016-10-11 14:45] VITALS: BP 112/64
[2016-10-11 23:33] VITALS: BP 110/68
[2016-10-12 06:33] VITALS: BP 112/72
--- NOTE | 2016-10-12 07:16 | PN- Housestaff ---
Subjective Follow-up For: vomitting and dyspnea Complaints: no complaints Subjective: I followed up and examined the patient today. This morning, patient is asymptomatic, nausea has stopped, she is still at her baseline level of oxygen at 3 L/m. Vitals have been stable, no overnight issues. She did mention that she has double vision to the attending. Review of Systems Constitutional: Reports: see HPI. Objective Last 24 Hrs of Vital Signs/I&O Vital Signs Date Time Temp Pulse Resp B/P B/P Pulse O2 O2 Flow FiO2 Mean Ox Delivery Rate 10/12 1600 94 Nasal 3.0L Cannula 10/12 1541 97.9 78 18 118/70 95 Room Air 10/12 1055 94 Nasal 3.0L Cannula 10/12 1007 93 137/64 10/12 1003 93 137/64 10/12 0800 96 Nasal 3.0L Cannula 10/12 0633 97.6 66 18 112/72 96 Room Air 10/12 0000 Nasal 3.0L Cannula 10/11 2333 98.3 94 20 110/68 96 Nasal 3.0L Cannula 10/11 2321 90 110/86 Intake & Output 10/12 1600 10/12 0800 10/12 0000 Intake Total 800 370 250 Output Total 100 300 500 Balance 700 70 -250 Intake, IV 200 130 Intake, Oral 600 240 250 Number 1 Bowel Movements Output, Urine 100 300 500 Physical Exam General Appearance: Alert, Oriented X3, Cooperative, No Acute Distress Other Physical Findings: Cardiovascular: Regular Rate, Normal S1, Normal S2 Lungs: Clear to Auscultation, Normal Air Movement Abdomen: Normal Bowel Sounds, Soft, No Tenderness Neurological: grossly intact, eye and EOM examination normal Current Medications: Current Medications Sig/Dean Start time Last Medication Dose Route Stop Time Status Admin Albuterol Sulfate 3 ML BID 10/11 1000 AC 10/12 INH 1051 Alprazolam 0.125 MG QPM 10/10 2200 AC 10/11 PO 10/17 2159 2328 Amoxicillin/ 500 MG Q8 10/12 1400 AC 10/12 Clavulanate Potassium PO 10/15 2300 1342 Ampicillin Sodium/ 3,000 MG Q6H 10/12 0130 DC 10/12 Sulbactam Sodium IV 0825 Sodium Chloride 100 ML Ampicillin Sodium/ 3,000 MG Q6H 10/10 1600 DC 10/11 Sulbactam Sodium IV 1930 Sodium Chloride 100 ML Chlorthalidone 12.5 MG DAILY 10/11 1000 AC 10/12 PO 1007 Dabigatran 150 MG BID 10/10 2200 AC 10/12 PO 1007 Docusate Sodium 200 MG DAILY 10/11 1000 AC 10/12 PO 1007 Fentanyl Citrate 50 MCG Q72H 10/11 1300 AC 10/11 TOP 1309 Folic Acid 1 MG DAILY 10/11 1000 AC 10/12 PO 1007 Furosemide 40 MG DAILY 10/11 1000 AC 10/12 PO 1007 Gabapentin 800 MG Q8 10/10 1400 AC 10/12 PO 1342 Lidocaine 1 PAT AT BEDTIME 10/10 2245 AC 10/11 EXT 2320 Magnesium Oxide 400 MG DAILY 10/10 1156 AC 10/12 PO 1007 Melatonin 6 MG QPM 10/10 2200 AC 10/11 PO 2318 Methotrexate 15 MG QWED 10/13 0700 AC PO Metoprolol Tartrate 100 MG BID 10/10 2200 AC 10/12 PO 1007 Omeprazole 40 MG DAILY AC 10/10 1201 AC 10/12 PO 0605 Ondansetron HCl 4 MG Q6P PRN 10/10 1215 AC 10/11 IV 0807 Potassium Chloride 10 MEQ Q1H 10/12 1330 DC 10/12 IV 10/12 1431 1731 Potassium Chloride 20 MEQ ONCE ONE 10/12 1330 DC 10/12 PO 10/12 1331 1342 Potassium Chloride 40 MEQ DAILY 10/10 1157 AC 10/12 PO 1007 Prednisone 5 MG DAILY 10/10 1157 AC 10/12 PO 1006 Senna/Docusate Sodium 1 TAB BID PRN 10/10 1200 AC 10/12 PO 0605 Sertraline HCl 125 MG DAILY 10/10 1158 AC 10/12 PO 1007 Last 24 Hrs of Lab/Jerry Results Last 24 Hrs of Labs/Mics: Laboratory Tests 10/12/16 0730: Anion Gap 6, Estimated GFR > 60, BUN/Creatinine Ratio 24.0, CBC w Diff NO MAN DIFF REQ, RBC 3.41 L, MCV 88.2, MCH 27.6, RDW 18.4 H, MPV 9.1, Gran % 80.3 H, Lymphocytes % 7.4 L, Monocytes % 7.1, Eosinophils % 4.8, Basophils % 0.4, Absolute Granulocytes 8.3 H, Absolute Lymphocytes 0.8 L, Absolute Monocytes 0.7 H, Absolute Eosinophils 0.5, Absolute Basophils 0, PUBS MCHC 31.3 L Assessment/Plan Assessment: This is 89-year-old obese female with past medical history of diastolic heart failure, A. fib, rheumatoid arthritis on chronic methotrexate and prednisone, anemia, ESBL UTI, spinal stenosis was sent in from [facility] with chief complaint of unresponsiveness followed by an episode of bilious vomiting followed by an episode of hypoxia with significant increase in O2 requirement, and WBC suggestive of mild leukocytosis likely suggestive of aspiration pneumonitis/ pneumonia. Patient also noted having dirty urine on urinalysis which could be asymptomatic bacteriuria with chronic colonization of ESBL in absence of any urinary symptoms or fever. 1. Acute on chronic hypoxic respiratory failure, possibly due to Aspiration pneumonia, Gram negative bacteria cannot be ruled out currently; getting better today -continue monitoring in general medicine floor -Continue supplemental O2, now at baseline -Keep O2 sat above 92% -TRC -IV Unasyn stopped today as she is not febrile, does not have leukocytosis, and is not at increase oxygen demand -Follow-up blood cx -Follow-up sputum culture -continue Aspiration precaution -patient passed swallow eval, is on regular diet currently - repeat CXR shows left lower lobe haziness, but the patient is not symptomatic anymore and will not be pursuing only the images 2. Altered mental status - Now improved - Likely in setting of opiates as patient is on fentanyl patch for spinal stenosis - decreased fentanyl dose from 75 to 50 yesterday and the patient is much alert today - Monitor mental status, if noted further episode of change in mental status consider decreasing the dose of fentanyl patch or try nonopiate analgesics 3. Acute gastroenteritis - Patient received 500 mL fluid in ER - Continue Zofran when necessary for nausea - continue Aspiration precaution 4. Asymptomatic bacteriuria - Patient denies any fever or urinary symptoms -Urine culture showed Escherichia coli that is ESBL, but the patient is asymptomatic so will not be treating it - Patient has history of ESBL UTI, suspect ESBL for urine culture obtain in ER - But due to no symptoms, I suspect this is colonization which need not to be treated at this point - But monitor for any signs of infection like fever,, leukocytosis, change in mental status, urinary burning or frequency---> if that happens patient may need to be started on antibiotic covering ESBL likely meropenem 5. Normocytic anemia - Likely anemia of chronic disease due to rheumatoid arthritis - H&H stable - Monitor H&H 6. History of congestive heart failure - Patient on physical exam noted having bilateral crackles and trace pedal edema , lab suggests elevated proBNP - She received 1 dose of IV Lasix 10/10/16, and continue home dose Lasix 40 mg daily from this AM - Strict I/O's - Daily weight - Keep K > 4, mg > 2 repeat as needed 7. Rheumatoid arthritis - Continue weekly dose of methotrexate 15 mg - Continue prednisone 5 mg daily 8. Spinal stenosis - Continue pain management with fentanyl patch (decreased dose), Lidoderm patch, gabapentin - Bowel regimen to avoid constipation 9. Hypertension Continue home dose chlorthalidone, Lasix and metoprolol 10. Atrial fibrillation - Continue metoprolol 100 mg twice a day for rate control - Continue PRADEXA 150 mg twice a day for anticoagulation 11. Anxiety/depression Continue Xanax 0.125 at bedtime and Zoloft 2.5 mg daily 12. DVT prophylaxis on pradaxa 13. DNR/DNI Problem List: 1. Nausea & vomiting 2. Acute respiratory failure Pain Ratin Pain Location: - Pain Goal: Pain 4 or less Pain Plan: prn Tomorrow's Labs & Rationales: CBC, BEP to replete lytes jerzy K
[2016-10-12] MEDS ORDERED: FENTANYL1 EAC3 TOP (08:09)
[2016-10-12 08:10] LABS: ABSOLUTE BASOPHIL COUNT 0 /CUMM (0.0-0.2); ABSOLUTE EOSINOPHIL COUNT 0.5 /CUMM (0.0-0.7); ABSOLUTE GRANULOCYTE CT 8.3 /CUMM (1.4-6.5); ABSOLUTE LYMPH COUNT 0.8 /CUMM (1.2-3.4); ABSOLUTE MONOCYTE COUNT 0.7 /CUMM (0.10-0.60); BASOPHIL % 0.4 % (0.0-2.0); EOSINOPHIL % 4.8 % (0-5); GRANULOCYTE % 80.3 % (42.2-75.2); HEMATOCRIT 30.1 % (37-47); MEAN CORPUSCULAR HGB 27.6 PG (27.0-31.0); MEAN CORPUSCULAR HGB CONC 31.3 G/DL (33.0-37.0); MEAN CORPUSCULAR VOLUME 88.2 FL (81.0-99.0); MEAN PLATELET VOLUME 9.1 FL (7.4-10.4); PLATELET COUNT 256 /CUMM (130-400); RBC DISTRIBUTION WIDTH 18.4 % (11.5-14.5); RED BLOOD CELL CT 3.41 /CUMM (4.20-5.40); WHITE BLOOD CELL COUNT 10.4 /CUMM (4.8-10.8)
--- NOTE | 2016-10-12 08:13 | Patient Discharge Instructions ---
Discharge Instructions General Discharge Information Special Instructions: Please call and make a follow-up with your primary care physician within one week after discharge. Please note that your fentanyl patch dose has been reduced Acute Coronary Syndrome Inclusion Criteria At DC or during hospital stay patient has or had the following: ACS DIAGNOSIS No Discharge Core Measures Meds if any: Prescribed or Continued at Discharge Meds if any: NOT Prescribed or Continued at Discharge Congestive Heart Failure Inclusion Criteria At DC or during hospital stay patient has or had the following: CHF DIAGNOSIS No Discharge Core Measures Meds if any: Prescribed or Continued at Discharge Meds if any: NOT Prescribed or Continued at Discharge Cerebrovascular accident Inclusion Criteria At DC or during hospital stay patient has or had the following: CVA/TIA Diagnosis No Discharge Core Measures Meds if any: Prescribed or Continued at Discharge Meds if any: NOT Prescribed or Continued at Discharge Venous thromboembolism Inclusion Criteria VTE Diagnosis No VTE Type NONE VTE Confirmed by (Test) NONE Discharge Core Measures - Per Current guidelines, there needs to be overlap - treatment for the first 5 days of Warfarin therapy. - If discharged on Warfarin prior to 5 days of - overlap therapy, the patient will need to be - assessed for post discharge needs including - *Post discharge parental anticoagulation - *Warfarin and/or parental anticoagulation education - *Follow up date to check INR post discharge At least 5 days overlap therapy as Inpatient No Meds if any: Prescribed or Continued at Discharge Note: Overlap Therapy is Warfarin and Anticoagulant Meds if any: NOT Prescribed or Continued at Discharge
--- NOTE | 2016-10-12 09:33 | PN- Att Addend ---
Attending Addendum Attending Brief Note Patient is awake and alert this morning responding appropriately to all the questions. She remains on 3 L of oxygen which is about her baseline according to the patient. She also reports chronic nausea and vomiting that is intermittent. She complains of feeling the surrounding caving in that is intermittent. General Appearance: Alert, No Acute Distress Skin: Grossly normal HEENT: PEERLA Neck: Supple, No JVD Cardiovascular: Regular Rate, Normal S1, Normal S2, No Murmurs Lungs: Decreased air entry in bilateral basilar crackles Abdomen: Normal Bowel Sounds, Soft, No Tenderness Neurological: Normal Speech, Strength at 5/5 X4 Ext, Cranial Nerves 3-12 NL, Reflexes 2+ Extremities: No Clubbing, No Cyanosis, No Edema Assessment Nausea and vomiting is chronic according to patient and she remains on 3 L of oxygen that is her baseline. It is possible she might have had aspiration pneumonitis secondary to vomiting. Repeat x-ray shows left lower infiltrate and she has responded to IV antibiotics. We will transition patient to Augmentin and get a swallow evaluation. She will need a GI evaluation and possible outpatient endoscopy for chronic nausea and vomiting symptoms. Patient describes visual symptoms that is intermittent. We will plan an inpatient neurological evaluation. Plan Change to Augmentin for total 7 days Swallow evaluation pending Continue fentanyl patch to 50 g once daily GI and neurology consult ADAL Day Aspiration precautions Replete potassium Continue other home medications DVT prophylaxis Current Medications Sig/Dean Start time Last Medication Dose Route Stop Time Status Admin Albuterol Sulfate 3 ML BID 10/11 1000 AC 10/11 INH 1920 Alprazolam 0.125 MG QPM 10/10 2200 AC 10/11 PO 10/17 2159 2328 Ampicillin Sodium/ 3,000 MG Q6H 10/12 0130 AC 10/12 Sulbactam Sodium IV 0825 Sodium Chloride 100 ML Ampicillin Sodium/ 3,000 MG Q6H /14 1600 DC 10/11 Sulbactam Sodium IV 1930 Sodium Chloride 100 ML Chlorthalidone 12.5 MG DAILY 10/11 1000 AC 05/ PO 1022 Dabigatran 150 MG BID 10/10 2200 AC 05/ PO 2318 Docusate Sodium 200 MG DAILY 10/11 1000 AC 05/15 PO 1021 Fentanyl Citrate 50 MCG Q72H 10/13 2030 DC TOP Fentanyl Citrate 50 MCG Q72H 10/11 1300 AC 10/11 TOP 1309 Folic Acid 1 MG DAILY 10/11 1000 AC 10/11 PO 1021 Furosemide 40 MG DAILY 10/11 1000 AC 10/11 PO 1021 Gabapentin 800 MG Q8 10/10 1400 AC 10/12 PO 0605 Lidocaine 1 PAT AT BEDTIME 10/10 2245 AC 10/11 EXT 2320 Magnesium Oxide 400 MG DAILY 10/10 1156 AC 10/11 PO 1021 Melatonin 6 MG QPM 10/10 2200 AC 10/11 PO 2318 Methotrexate 15 MG QWED 10/13 0700 AC PO Metoprolol Tartrate 100 MG BID 10/10 2200 AC 10/11 PO 2321 Omeprazole 40 MG DAILY AC 10/10 1201 AC 10/12 PO 0605 Ondansetron HCl 4 MG Q6P PRN 10/10 1215 AC 10/11 IV 0807 Patient Medication 1 ED .STK-MED ONE 10/11 1359 DC Teaching ED 10/11 1400 Potassium Chloride 40 MEQ ONCE ONE 10/11 1345 CAN PO 10/11 1346 Potassium Chloride 20 MEQ ONCE ONE 10/11 1215 DC 10/11 PO 10/11 1216 1217 Potassium Chloride 20 MEQ ONCE ONE 10/11 1215 DC 10/11 PO 10/11 1216 1216 Potassium Chloride 40 MEQ DAILY 10/10 1157 AC 10/11 PO 1021 Prednisone 5 MG DAILY 10/10 1157 AC 10/11 PO 1021 Senna/Docusate Sodium 1 TAB BID PRN 10/10 1200 AC 10/12 PO 0605 Sertraline HCl 125 MG DAILY 10/10 1158 AC 10/11 PO 1022 Laboratory Tests 10/12 0730 Chemistry Sodium (137 - 145 mmol/L) 139 Potassium (3.5 - 5.1 mmol/L) 3.1 L Chloride (98 - 107 mmol/L) 87 L Carbon Dioxide (22 - 30 mmol/L) 46 H Anion Gap (5 - 16) 6 BUN (7 - 17 mg/dL) 12 Creatinine (0.5 - 1.0 mg/dL) 0.5 Estimated GFR (>60 ml/min) > 60 BUN/Creatinine Ratio (7 - 25 %) 24.0 Hematology CBC w Diff NO MAN DIFF REQ WBC (4.8 - 10.8 /CUMM) 10.4 RBC (4.20 - 5.40 /CUMM) 3.41 L Hgb (12.0 - 16.0 G/DL) 9.4 L Hct (37 - 47 %) 30.1 L MCV (81.0 - 99.0 FL) 88.2 MCH (27.0 - 31.0 PG) 27.6 RDW (11.5 - 14.5 %) 18.4 H Plt Count (130 - 400 /CUMM) 256 MPV (7.4 - 10.4 FL) 9.1 Gran % (42.2 - 75.2 %) 80.3 H Lymphocytes % (20.5 - 51.1 %) 7.4 L Monocytes % (1.7 - 9.3 %) 7.1 Eosinophils % (0 - 5 %) 4.8 Basophils % (0.0 - 2.0 %) 0.4 Absolute Granulocytes (1.4 - 6.5 /CUMM) 8.3 H Absolute Lymphocytes (1.2 - 3.4 /CUMM) 0.8 L Absolute Monocytes (0.10 - 0.60 /CUMM) 0.7 H Absolute Eosinophils (0.0 - 0.7 /CUMM) 0.5 Absolute Basophils (0.0 - 0.2 /CUMM) 0 PUBS MCHC (33.0 - 37.0 G/DL) 31.3 L Vital Signs Date Time Temp Pulse Resp B/P B/P Pulse O2 O2 Flow FiO2 Mean Ox Delivery Rate 10/12 0633 97.6 66 18 112/72 96 Room Air 10/12 0000 Nasal 3.0L Cannula 10/11 2333 98.3 94 20 110/68 96 Nasal 3.0L Cannula 10/11 2321 90 110/86 10/11 1920 96 Nasal 3.0L Cannula 10/11 1600 Nasal 3.0L Cannula 10/11 1445 98.0 78 20 112/64 93 Nasal 3.0L Cannula 10/11 1021 67 110/68
[2016-10-12 10:03] VITALS: BP 137/64
[2016-10-12 15:41] VITALS: BP 118/70
--- NOTE | 2016-10-12 16:39 | CT SCAN REPORT ---
EXAMINATION: CT HEAD WITHOUT CONTRAST CLINICAL INFORMATION: New onset diplopia COMPARISON: None TECHNIQUE: Contiguous axial imaging was performed from the skull base to vertex without intravenous contrast. DLP: 788 mGy-cm. FINDINGS: There is no evidence of acute intracranial hemorrhage or territorial infarction. No abnormal mass effect or midline shift is seen. Biggs to white matter differentiation is well preserved. No extra-axial fluid collections are identified. No hydrocephalus. Proportional prominence of the ventricles and sulcal spaces is consistent with mild volume loss. Patchy periventricular and deep white matter hypoattenuation is consistent with mild small vessel ischemic changes. The osseous structures and soft tissues are normal. The mastoid air cells and visualized portions of the paranasal sinuses are well aerated. IMPRESSION: No acute intracranial pathology. Mild volume loss and small vessel ischemic change.
--- NOTE | 2016-10-12 17:22 | Cons- Gastroenterology ---
General Information and HPI Consulting Request Date of Consult: 10/12/16 (MD [facility]/GASTROENTEROLOGY) [facility] Reason for Consult: Vomiting Source of Information: patient Exam Limitations: patient's age, poor historian History of Present Illness: 89-year-old female who presented with an episode of unresponsiveness, followed by vomiting and hypoxia. She was admitted with presumed aspiration pneumonia. She has passed a swallowing evaluation. Since early on in the hospitalization, there has been no recurrent vomiting and she is tolerating her diet. The patient states that she has had intermittent nausea, and vomiting and/or regurgitation, on and off for several years. She had heartburn, and was placed on Nexium; it is unclear whether this has helped. She regurgitates "phlegm,", and only rarely food, which could be immediately after eating. She has occasional retching and queasiness. She has sporadic difficulty with initiating swallowing. There is no pain with swallowing. She denies abdominal pain. She has chronic constipation and requires laxative therapy. Apparently several years ago there was a plan for either an upper GI series or endoscopy, but this was not carried out for unclear reasons. Allergies/Medications Allergies: Coded Allergies: Sulfa (Sulfonamide Antibiotics) (UNKNOWN 10/10/16) Home Med List: Alprazolam (Xanax) 0.25 MG TABLET 0.5 TAB PO QPM SLEEP (Reported) Chlorthalidone 25 MG TABLET 0.5 TAB PO DAILY EDEMA (Reported) Dabigatran Etexilate Mesylate (Pradaxa 150 MG) 150 MG CAPSULE 1 CAP PO BID AFIB (Reported) Docusate Sodium (Colace) 100 MG CAPSULE 2 CAP PO DAILY CONSTIPATION (Reported ) Docusate Sodium (Colace) 100 MG CAPSULE 1 CAP PO QPM CONSTIPATION (Reported) Ergocalciferol (Vitamin D2) (Vitamin D2) 50,000 UNIT CAPSULE 1 CAP PO Q30D VITAMIN SUPPORT (Reported) Esomeprazole (Nexium) 40 MG CAPSULE.DR 1 CAP PO DAILY ACID REFLUX (Reported) Fentanyl 75 MCG/HOUR PATCH.TD72 1 PAT TOP Q3D PAIN (Reported) Folic Acid 1 MG TABLET 1 TAB PO DAILY SUPPLEMENT (Reported) Furosemide (Lasix) 40 MG TABLET 1 TAB PO DAILY WATER PILL (Reported) Gabapentin 800 MG TABLET 1 TAB PO TID NEUROPATHY (Reported) Lidocaine (Lidoderm) 5 % ADH..PATCH 1 PAT TOP DAILY PAIN (Reported) may wear up to 12 hours Magnesium Oxide 400 MG TABLET 1 TAB PO DAILY SUPPLEMENT (Reported) Melatonin 3 MG TABLET 2 TAB PO QPM SLEEP (Reported) Methotrexate 2.5 MG TABLET 6 TAB PO QWED ARTHRITIS (Reported) Metoprolol Tartrate (Lopressor) 100 MG TABLET 1 TAB PO BID AFIB (Reported) Potassium Chloride (K-Tab ER) 20 MEQ TABLET.ER 2 TAB PO BID SUPPLEMENT ( Reported) Prednisone 5 MG TABLET 1 TAB PO DAILY ARTHRITIS (Reported) Sennosides (Senna) 8.6 MG TABLET 1 TAB PO DAILY CONSTIPATION (Reported) Sertraline HCl 50 MG TABLET 2.5 TAB PO DAILY DEPRESSION (Reported) Current Medications: Current Medications Sig/Dean Start time Last Medication Dose Route Stop Time Status Admin Albuterol Sulfate 3 ML BID 10/11 1000 AC 10/12 INH 1051 Alprazolam 0.125 MG QPM 10/10 2200 AC 10/11 PO 10/17 2159 2328 Amoxicillin/ 500 MG Q8 10/12 1400 AC 10/12 Clavulanate Potassium PO 10/15 2300 1342 Ampicillin Sodium/ 3,000 MG Q6H 10/12 0130 DC 10/12 Sulbactam Sodium IV 0825 Sodium Chloride 100 ML Ampicillin Sodium/ 3,000 MG Q6H 10/10 1600 DC 10/11 Sulbactam Sodium IV 1930 Sodium Chloride 100 ML Chlorthalidone 12.5 MG DAILY 10/11 1000 AC 10/12 PO 1007 Dabigatran 150 MG BID 10/10 2200 AC 10/12 PO 1007 Docusate Sodium 200 MG DAILY 10/11 1000 AC 10/12 PO 1007 Fentanyl Citrate 50 MCG Q72H 10/11 1300 AC 10/11 TOP 1309 Folic Acid 1 MG DAILY 10/11 1000 AC 10/12 PO 1007 Furosemide 40 MG DAILY 10/11 1000 AC 10/12 PO 1007 Gabapentin 800 MG Q8 10/10 1400 AC 10/12 PO 1342 Lidocaine 1 PAT AT BEDTIME 10/10 2245 AC 10/11 EXT 2320 Magnesium Oxide 400 MG DAILY 10/10 1156 AC 10/12 PO 1007 Melatonin 6 MG QPM 10/10 2200 AC 10/11 PO 2318 Methotrexate 15 MG QWED 10/13 0700 AC PO Metoprolol Tartrate 100 MG BID 10/10 2200 AC 10/12 PO 1007 Omeprazole 40 MG DAILY AC 10/10 1201 AC 10/12 PO 0605 Ondansetron HCl 4 MG Q6P PRN 10/10 1215 AC 10/11 IV 0807 Potassium Chloride 10 MEQ Q1H 10/12 1330 DC 10/12 IV 10/12 1431 1342 Potassium Chloride 20 MEQ ONCE ONE 10/12 1330 DC 10/12 PO 10/12 1331 1342 Potassium Chloride 40 MEQ DAILY 10/10 1157 AC 10/12 PO 1007 Prednisone 5 MG DAILY 10/10 1157 AC 10/12 PO 1006 Senna/Docusate Sodium 1 TAB BID PRN 10/10 1200 AC 10/12 PO 0605 Sertraline HCl 125 MG DAILY 10/10 1158 AC 10/12 PO 1007 Past History Travel History Traveled to [place] past 21 day No Medical History Neurological: GENERAL WEAKNESS EENT: NONE Cardiovascular: AFIB, CHF, hypertension, ANEMIA HEART FAILURE Respiratory: NONE Gastrointestinal: GERD Hepatic: NONE Renal: NONE Musculoskeletal: osteoarthritis, rheumatoid arthritis, spinal stenosis, ARTHRITIS Psychiatric: NONE Endocrine: NONE 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 FATHER, , Age 60+; Cause: Throat cancer. Relation not specified for: Diabetes mellitus (DM) Fam hx-ischem heart disease Psychosocial History Where Do You Live? Extended Care Facility Services at Home: Physical Therapy Smoking Status: Never Smoked ETOH Use: denies use Illicit Drug Use: denies illicit drug use Living Will? yes Power of Machine Cleaner/HCP? yes Name of POA/HCP: son (david wray) Functional Ability ADLs Needs Assist: dressing, eating, toileting, bathing. Ambulation: walker Review of Systems Review of Systems Constitutional: Denies: chills, fever. EENTM: Denies: icterus, epistaxis. Cardiovascular: Reports: syncope. Denies: edema. Respiratory: Reports: short of breath. Denies: cough. GI: Reports: see HPI. Genitourinary: Denies: dysuria, hematuria. Musculoskeletal: Denies: gout, neck pain. Skin: Denies: jaundice, lesions. Neurological/Psychological: Denies: headache, tremors. Hematologic/Endocrine: Denies: bruising, bleeding. Exam & Diagnostic Data Vital Signs and I&O Vital Signs Date Time Temp Pulse Resp B/P B/P Pulse O2 O2 Flow FiO2 Mean Ox Delivery Rate 10/12 1541 97.9 78 18 118/70 95 Room Air 10/12 1055 94 Nasal 3.0L Cannula 10/12 1007 93 137/64 10/12 1003 93 137/64 10/12 0800 96 Nasal 3.0L Cannula 10/12 0633 97.6 66 18 112/72 96 Room Air 10/12 0000 Nasal 3.0L Cannula 10/11 2333 98.3 94 20 110/68 96 Nasal 3.0L Cannula 10/11 2321 90 110/86 10/11 1920 96 Nasal 3.0L Cannula Intake & Output 10/12 1600 10/12 0400 10/11 1600 10/11 0400 10/10 1600 10/10 0400 Intake Total 1506 582 9154 100 500 Output Total 400 472 235 5103 300 Balance 770 -250 310 -1100 200 Intake, IV 330 270 100 500 Intake, Oral 840 250 840 Number 1 0 1 Bowel Movements Output, Urine 400 422 509 7691 300 Patient 189 lb Weight Weight Reported by Patient Measurement Method Physical Exam: Elderly white female, no apparent distress. Alert and oriented. Skin normal, with normal turgor, without rash, lesion, or jaundice. No adenopathy. Sclera anicteric. Dentures. No oropharyngeal lesion. No thyromegaly or neck mass. Heart regular rhythm. Lungs clear bilaterally, anterolateral. Abdomen mildly distended and soft with normal bowel sounds, no tenderness, mass or organomegaly. Right upper quadrant scar. Extremities without clubbing, cyanosis or edema. Results Pertinent Lab Results: Laboratory Tests 10/12 10/11 0730 0657 Chemistry Sodium (137 - 145 mmol/L) 139 140 Potassium (3.5 - 5.1 mmol/L) 3.1 L 3.0 L Chloride (98 - 107 mmol/L) 87 L 84 L Carbon Dioxide (22 - 30 mmol/L) 46 H 47 H Anion Gap (5 - 16) 6 9 BUN (7 - 17 mg/dL) 12 13 Creatinine (0.5 - 1.0 mg/dL) 0.5 0.6 Estimated GFR (>60 ml/min) > 60 > 60 BUN/Creatinine Ratio (7 - 25 %) 24.0 21.7 Hematology CBC w Diff NO MAN DIFF REQ NO MAN DIFF REQ WBC (4.8 - 10.8 /CUMM) 10.4 10.3 RBC (4.20 - 5.40 /CUMM) 3.41 L 3.42 L Hgb (12.0 - 16.0 G/DL) 9.4 L 9.4 L Hct (37 - 47 %) 30.1 L 30.2 L MCV (81.0 - 99.0 FL) 88.2 88.2 MCH (27.0 - 31.0 PG) 27.6 27.4 RDW (11.5 - 14.5 %) 18.4 H 18.2 H Plt Count (130 - 400 /CUMM) 256 245 MPV (7.4 - 10.4 FL) 9.1 9.3 Gran % (42.2 - 75.2 %) 80.3 H 83.5 H Lymphocytes % (20.5 - 51.1 %) 7.4 L 7.2 L Monocytes % (1.7 - 9.3 %) 7.1 6.9 Eosinophils % (0 - 5 %) 4.8 2.1 Basophils % (0.0 - 2.0 %) 0.4 0.3 Absolute Granulocytes (1.4 - 6.5 /CUMM) 8.3 H 8.6 H Absolute Lymphocytes (1.2 - 3.4 /CUMM) 0.8 L 0.7 L Absolute Monocytes (0.10 - 0.60 /CUMM) 0.7 H 0.7 H Absolute Eosinophils (0.0 - 0.7 /CUMM) 0.5 0.2 Absolute Basophils (0.0 - 0.2 /CUMM) 0 0 PUBS MCHC (33.0 - 37.0 G/DL) 31.3 L 31.1 L 10/10 10/10 1230 1012 Chemistry Lactic Acid (0.7 - 2.1 mmol/L) 1.2 Urines Urine Color (YEL,AMB,STR) YEL Urine Clarity (CLEAR) CLDY H Urine pH (5.0 - 8.0) 6.5 Ur Specific [place] (1.001 - 1.035) 1.020 Urine Protein (NEG,<30 MG/DL) NEG Urine Ketones (NEG) NEG Urine Nitrite (NEG) POS H Urine Bilirubin (NEG) NEG Urine Urobilinogen (0.1 - 1.0 EU/dl) 0.2 Ur Leukocyte Esterase (NEG) SMALL H Ur Microscopic SEDIMENT EXAMINED Urine RBC (0 - 5 /HPF) RARE Urine WBC (0 - 2 /HPF) 5-10 H Urine Bacteria (NEG/NONE) PACKD H Urine Hemoglobin (NEG) TRACE-LYSED Urine Glucose (N MG/DL) NEG 10/10 10/10 0938 0910 Blood Gas pH (7.35 - 7.45 PH) 7.39 pCO2 (35 - 45 TORR) 73 *H pO2 (80 - 100 TORR) 59 L HCO3 (21 - 28 MEQ/L) 43 H ABG O2 Sat (Measured) (>96.0 %) 90.0 L P-50 (Temp Corrected) N Carboxyhemoglobin (1.5 - 5.0 %) 1.4 L O2 Concentration % 4LPM O2 Delivery Method NC Chemistry Sodium (137 - 145 mmol/L) 142 Potassium (3.5 - 5.1 mmol/L) 3.6 Chloride (98 - 107 mmol/L) 87 L Carbon Dioxide (22 - 30 mmol/L) 49 H Anion Gap (5 - 16) 6 BUN (7 - 17 mg/dL) 12 Creatinine (0.5 - 1.0 mg/dL) 0.5 Estimated GFR (>60 ml/min) > 60 BUN/Creatinine Ratio (7 - 25 %) 24.0 Glucose (65 - 99 mg/dL) 151 H Lactic Acid (0.7 - 2.1 mmol/L) 1.3 Calcium (8.4 - 10.2 mg/dL) 8.5 Total Bilirubin (0.2 - 1.3 mg/dL) 0.6 AST (14 - 36 U/L) 12 L ALT (9 - 52 U/L) 24 Alkaline Phosphatase (<127 U/L) 60 Troponin I (< 0.11 ng/ml) < 0.01 Yhe-M-Aqhyxwgdfrt Pept (<125 pg/mL) 2440 H Total Protein (6.3 - 8.2 g/dL) 5.7 L Albumin (3.5 - 5.0 g/dL) 3.2 L Globulin (1.9 - 4.2 gm/dL) 2.5 Albumin/Globulin Ratio (1.1 - 2.2 %) 1.3 Amylase (30 - 110 U/L) 75 Lipase (23 - 300 U/L) 199 Hematology CBC w Diff NO MAN DIFF REQ WBC (4.8 - 10.8 /CUMM) 12.4 H RBC (4.20 - 5.40 /CUMM) 3.63 L Hgb (12.0 - 16.0 G/DL) 9.9 L Hct (37 - 47 %) 32.0 L MCV (81.0 - 99.0 FL) 88.3 MCH (27.0 - 31.0 PG) 27.1 RDW (11.5 - 14.5 %) 18.3 H Plt Count (130 - 400 /CUMM) 269 MPV (7.4 - 10.4 FL) 9.0 Gran % (42.2 - 75.2 %) 86.5 H Lymphocytes % (20.5 - 51.1 %) 4.8 L Monocytes % (1.7 - 9.3 %) 5.6 Eosinophils % (0 - 5 %) 2.6 Basophils % (0.0 - 2.0 %) 0.5 Absolute Granulocytes (1.4 - 6.5 /CUMM) 10.7 H Absolute Lymphocytes (1.2 - 3.4 /CUMM) 0.6 L Absolute Monocytes (0.10 - 0.60 /CUMM) 0.7 H Absolute Eosinophils (0.0 - 0.7 /CUMM) 0.3 Absolute Basophils (0.0 - 0.2 /CUMM) 0.1 PUBS MCHC (33.0 - 37.0 G/DL) 30.8 L Miscellaneous Phlebotomy Draw Site RIGHT BRACHIAL Imaging/Other Studies: CT scan of the head unrevealing Assessment/Plan Assessment/Recommendations: Intermittent nausea, vomiting and/or regurgitation. Also with heartburn, and occasional dysphagia. Possibilities include GERD, gastric dysmotility, gastroenteropathy, medications (fentanyl, methotrexate, sertraline, etc.), constipation, etc. No pain to suggest obstruction. No intracranial lesion on imaging. Eructation likely secondary to aerophagia. Recommendations * Limit narcotics if possible * Upper GI series * Hold on EGD for now * Assess for post methotrexate vomiting, with weekly dose * Antiemetics as needed such as ondansetron Copies To: SYDNI [facility]UCEDO,[facility] Consult Acknowledgment - Thank you for your consult request.
[2016-10-12 22:00] VITALS: BP 104/60
[2016-10-13 06:55] VITALS: BP 116/82
--- NOTE | 2016-10-13 07:06 | PN- Housestaff ---
Subjective Follow-up For: Nausea/vomiting; Diplopia; Possible aspiration pneumonia Complaints: no complaints Subjective: I followed up and examined the patient today. She is resting comfortably in bed , not in distress, does not offer any complaints. Upon questioning, denies any diplopia currently, is no more nauseous, doesn't have headache, fever or chills. Vitals have been stable overnight, no other issues. Review of Systems Constitutional: Reports: no symptoms. Objective Last 24 Hrs of Vital Signs/I&O Vital Signs Date Time Temp Pulse Resp B/P B/P Pulse O2 O2 Flow FiO2 Mean Ox Delivery Rate 10/13 1418 98.1 73 20 100/78 95 Nasal 3.0L Cannula 10/13 1224 78 118/78 10/13 1122 95 Nasal 3.0L Cannula 10/13 0800 95 Nasal 3.0L Cannula 10/13 0655 97.9 79 20 116/82 95 Nasal 3.0L Cannula 10/13 0000 Nasal 3.0L Cannula 10/12 2200 98.0 84 21 104/60 96 Nasal 3.0L Cannula 10/12 2153 104/60 10/12 2026 93 Nasal 3.0L Cannula 10/12 202 95 Nasal 3.0L Cannula 10/12 1600 94 Nasal 3.0L Cannula 10/12 1541 97.9 78 18 118/70 95 Room Air Intake & Output 10/13 1600 10/13 0800 10/13 0000 Intake Total 810 340 Output Total 51 Balance 759 340 Intake, IV 10 Intake, Oral 800 340 Number 2 Bowel Movements Output, Stool 1 Output, Urine 50 Patient 85.729 kg Weight Physical Exam General Appearance: Alert, Oriented X3, Cooperative, No Acute Distress, obese Other Physical Findings: Cardiovascular: Regular Rate, Normal S1, Normal S2 Lungs: Clear to Auscultation, Normal Air Movement Abdomen: Normal Bowel Sounds, Soft, No Tenderness Neurological: grossly intact, eye and EOM examination normal Current Medications: Current Medications Sig/Dean Start time Last Medication Dose Route Stop Time Status Admin Albuterol Sulfate 3 ML BID 10/11 1000 AC 10/13 INH 1119 Alprazolam 0.125 MG QPM 10/10 2200 AC 10/11 PO 10/17 215 2328 Amoxicillin/ 500 MG Q8 10/12 1400 DC 10/12 Clavulanate Potassium PO 10/15 2300 2153 Bisacodyl 10 MG ONCE ONE 10/13 0915 DC 10/13 MO 10/13 0916 0908 Chlorthalidone 12.5 MG DAILY 10/11 1000 AC 10/13 PO 1224 Dabigatran 150 MG BID 10/10 2200 AC 10/13 PO 1224 Docusate Sodium 200 MG DAILY 10/11 1000 AC 10/12 PO 1007 Fentanyl Citrate 50 MCG Q72H 10/11 1300 AC 10/11 TOP 1309 Folic Acid 1 MG DAILY 10/11 1000 AC 10/13 PO 1225 Furosemide 40 MG DAILY 10/11 1000 AC 10/13 PO 1225 Gabapentin 800 MG Q8 10/10 1400 AC 10/13 PO 1225 Lidocaine 1 PAT AT BEDTIME 10/10 2245 AC 10/12 EXT 2154 Magnesium Oxide 400 MG DAILY 10/10 1156 AC 10/13 PO 1224 Melatonin 6 MG QPM 10/10 2200 AC 10/12 PO 2153 Methotrexate 15 MG QWED 10/13 0700 AC PO Metoprolol Tartrate 100 MG BID 10/10 2200 AC 10/13 PO 1224 Omeprazole 40 MG DAILY AC 10/10 1201 AC 10/12 PO 0605 Ondansetron HCl 4 MG Q6P PRN 10/10 1215 AC 10/11 IV 0807 Patient Medication 1 ED .STK-MED ONE 10/13 1331 MT Teaching ED 10/13 1332 Polyethylene Glycol 17 GM DAILY 10/13 1000 AC PO Potassium Chloride 40 MEQ DAILY 10/10 1157 AC 10/13 PO 1224 Prednisone 5 MG DAILY 10/10 1157 AC 10/13 PO 1224 Senna/Docusate Sodium 1 TAB BID PRN 10/10 1200 AC 10/12 PO 0605 Sertraline HCl 125 MG DAILY 10/10 1158 AC 10/12 PO 1007 Vancomycin HCl 1,000 MG DAILY 10/13 1000 DC Sodium Chloride 250 ML IV Last 24 Hrs of Lab/Jerry Results Last 24 Hrs of Labs/Mics: Laboratory Tests 10/13/16 07: Anion Gap 5, Estimated GFR > 60, BUN/Creatinine Ratio 20.0, CBC w Diff NO MAN DIFF REQ, RBC 3.53 L, MCV 87.4, MCH 27.0, RDW 17.5 H, MPV 9.2, Gran % 83.5 H, Lymphocytes % 6.7 L, Monocytes % 5.3, Eosinophils % 4.3, Basophils % 0.2, Absolute Granulocytes 8.1 H, Absolute Lymphocytes 0.6 L, Absolute Monocytes 0.5, Absolute Eosinophils 0.4, Absolute Basophils 0, PUBS MCHC 31.0 L Assessment/Plan Assessment: This is 89-year-old obese female with past medical history of diastolic heart failure, A. fib, rheumatoid arthritis on chronic methotrexate and prednisone, anemia, ESBL UTI, spinal stenosis was sent in from [facility] with chief complaint of unresponsiveness followed by an episode of bilious vomiting followed by an episode of hypoxia with significant increase in O2 requirement, and WBC suggestive of mild leukocytosis likely suggestive of aspiration pneumonitis/ pneumonia. Patient also noted having dirty urine on urinalysis which could be asymptomatic bacteriuria with chronic colonization of ESBL in absence of any urinary symptoms or fever. 1. Acute on chronic hypoxic respiratory failure, possibly due to Aspiration pneumonia, better today -continue monitoring in general medicine floor -Continue supplemental O2, now at baseline 3L/min -Keep O2 sat above 92% -Continue TRC -IV Unasyn changed to Augmentin yesterday as the patinet was not febrile or had high WBCs, and didn't have any increased oxygen demand -Blood cx one set came to be GPC in clusters, so IV Vancomycin was ordered adn ID consultation palced. Per ID suggestion of possibility of contamination, the Vanc dose was discontinued (patient did not receive a single Vanc dose), and awaiting ID recomendations. -Plan to discharge the patient if the positive blood cultures seem to be from contamination. Pelvis we'll have to pursue for infectious disease service suggestion, until patient's blood culture is negative for any gram-positive cocci, possibly staph aureus. -Follow-up sputum culture -continue Aspiration precaution -patient passed swallow eval, is on regular diet currently - repeat CXR shows left lower lobe haziness, but the patient is not symptomatic anymore and will not be pursuing only the images 2. Altered mental status/diplopia - Now improved - Likely in setting of opiates as patient is on fentanyl patch for spinal stenosis - decreased fentanyl dose from 75 to 50 on 10/11/16 and the patient is much alert since 10/12/16 - Monitor mental status, if noted further episode of change in mental status consider decreasing the dose of fentanyl patch or try nonopiate analgesics -Patient had complained of double vision/diplopia on 10/12/2016 to the attending. On examination patient did not have any positive finding neurologically or on eye/extraocular muscles examination. Neurological consultation was done over phone, who suggested to get a CAT scan of head and proceed with consultation only if there is any bleed or acute intra-cranial condition ongoing. CAT scan of the head without contrast did not reveal any bleeding or acute changes. Thus neurological consultation was not pressured any further. 3. Acute gastroenteritis - Patient received 500 mL fluid in ER - Continue Zofran when necessary for nausea - Patient was seen by Dr. Derian Turpin, manager basketball , yesterday and according to his suggestion, patient received an upper GI series scan today. 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 The patient is at risk for retrograde aspiration. - continue Aspiration precaution 4. Asymptomatic bacteriuria - Patient denies any fever or urinary symptoms -Urine culture showed Escherichia coli that is ESBL, but the patient is asymptomatic so will not be treating it - Patient has history of ESBL UTI, suspect ESBL for urine culture obtain in ER - But due to no symptoms, I suspect this is colonization which need not to be treated at this point - But monitor for any signs of infection like fever,, leukocytosis, change in mental status, urinary burning or frequency---> if that happens patient may need to be started on antibiotic covering ESBL likely meropenem 5. Normocytic anemia - Likely anemia of chronic disease due to rheumatoid arthritis - H&H stable - Monitor H&H 6. History of congestive heart failure - Patient on physical exam noted having bilateral crackles and trace pedal edema , lab suggests elevated proBNP - She received 1 dose of IV Lasix 10/10/16, and continue home dose Lasix 40 mg daily from this AM - Strict I/O's - Daily weight - Keep K > 4, mg > 2 repeat as needed 7. Rheumatoid arthritis - Continue weekly dose of methotrexate 15 mg - Continue prednisone 5 mg daily 8. Spinal stenosis - Continue pain management with fentanyl patch (decreased dose), Lidoderm patch, gabapentin - Bowel regimen to avoid constipation 9. Hypertension Continue home dose chlorthalidone, Lasix and metoprolol 10. Atrial fibrillation - Continue metoprolol 100 mg twice a day for rate control - Continue PRADEXA 150 mg twice a day for anticoagulation 11. Anxiety/depression Continue Xanax 0.125 at bedtime and Zoloft 2.5 mg daily 12. DVT prophylaxis on pradaxa 13. DNR/DNI Problem List: 1. Nausea & vomiting 2. Diplopia 3. Acute respiratory failure 4. Achalasia 5. Aspiration into airway Pain Ratin Pain Location: - Pain Goal: Pain 4 or less Pain Plan: prn Tomorrow's Labs & Rationales: CBC, BEP to replete lytes
[2016-10-13 08:13] LABS: ABSOLUTE BASOPHIL COUNT 0 /CUMM (0.0-0.2); ABSOLUTE EOSINOPHIL COUNT 0.4 /CUMM (0.0-0.7); ABSOLUTE GRANULOCYTE CT 8.1 /CUMM (1.4-6.5); ABSOLUTE LYMPH COUNT 0.6 /CUMM (1.2-3.4); ABSOLUTE MONOCYTE COUNT 0.5 /CUMM (0.10-0.60); BASOPHIL % 0.2 % (0.0-2.0); EOSINOPHIL % 4.3 % (0-5); GRANULOCYTE % 83.5 % (42.2-75.2); HEMATOCRIT 30.9 % (37-47); MEAN CORPUSCULAR VOLUME 87.4 FL (81.0-99.0); MEAN PLATELET VOLUME 9.2 FL (7.4-10.4); PLATELET COUNT 257 /CUMM (130-400); RBC DISTRIBUTION WIDTH 17.5 % (11.5-14.5); RED BLOOD CELL CT 3.53 /CUMM (4.20-5.40); WHITE BLOOD CELL COUNT 9.7 /CUMM (4.8-10.8)
--- NOTE | 2016-10-13 10:03 | PN- Att Addend ---
Attending Addendum Attending Brief Note Patient is awake and alert this morning responding appropriately to all the questions. She remains on 3 L of oxygen which is about her baseline according to the patient. She is awaiting for barium swallow. General Appearance: Alert, No Acute Distress Skin: Grossly normal HEENT: PEERLA Neck: Supple, No JVD Cardiovascular: Regular Rate, Normal S1, Normal S2, No Murmurs Lungs: Decreased air entry in bilateral basilar crackles Abdomen: Normal Bowel Sounds, Soft, No Tenderness Neurological: Normal Speech, Strength at 5/5 X4 Ext, Cranial Nerves 3-12 NL, Reflexes 2+ Extremities: No Clubbing, No Cyanosis, No Edema Assessment Patient is awaiting barium swallow. She now has 1 out of 2 bottles gram- positive cocci in clusters. Possible pneumonia sepsis. Will change antibiotics to vancomycin, repeat blood cultures and also get ID evaluation. In the meantime for the nausea workup for GI and patient had a neurology evaluation for vision with a negative CAT scan and she'll be followed up with neurology as outpatient. In Plan Start vancomycin Repeat blood cultures ID consult Barium swallow Continue fentanyl patch to 50 g once daily Aspiration precautions Replete potassium Continue other home medications DVT prophylaxis ) Current Medications Sig/Dean Start time Last Medication Dose Route Stop Time Status Admin Albuterol Sulfate 3 ML BID 10/11 1000 AC 10/12 INH 2022 Alprazolam 0.125 MG QPM 10/10 2200 AC 10/11 PO 10/17 2159 2328 Amoxicillin/ 500 MG Q8 10/12 1400 DC 10/12 Clavulanate Potassium PO 10/15 2300 2153 Bisacodyl 10 MG ONCE ONE 10/13 0915 DC 10/13 ME 10/13 0916 0908 Chlorthalidone 12.5 MG DAILY 10/11 1000 AC 10/12 PO 1007 Dabigatran 150 MG BID 10/10 2200 AC 10/12 PO 2152 Docusate Sodium 200 MG DAILY 10/11 1000 AC 10/12 PO 1007 Fentanyl Citrate 50 MCG Q72H 10/11 1300 AC 10/11 TOP 1309 Folic Acid 1 MG DAILY 10/11 1000 AC 10/12 PO 1007 Furosemide 40 MG DAILY 10/11 1000 AC 10/12 PO 1007 Gabapentin 800 MG Q8 10/10 1400 AC 10/12 PO 2153 Lidocaine 1 PAT AT BEDTIME 10/10 2245 AC 10/12 EXT 2154 Magnesium Oxide 400 MG DAILY 10/10 1156 AC 10/12 PO 1007 Melatonin 6 MG QPM 10/10 2200 AC 10/12 PO 2153 Methotrexate 15 MG QWED 10/13 0700 AC PO Metoprolol Tartrate 100 MG BID 10/10 2200 AC 10/12 PO 2153 Omeprazole 40 MG DAILY AC 10/10 1201 AC 10/12 PO 0605 Ondansetron HCl 4 MG Q6P PRN 10/10 1215 AC 10/11 IV 0807 Polyethylene Glycol 17 GM DAILY 10/13 1000 AC PO Potassium Chloride 10 MEQ Q1H 10/12 1330 DC 10/12 IV 10/12 1431 1731 Potassium Chloride 20 MEQ ONCE ONE 10/12 1330 DC 10/12 PO 10/12 1331 1342 Potassium Chloride 40 MEQ DAILY 10/10 1157 AC 10/12 PO 1007 Prednisone 5 MG DAILY 10/10 1157 AC 10/12 PO 1006 Senna/Docusate Sodium 1 TAB BID PRN 10/10 1200 AC 10/12 PO 0605 Sertraline HCl 125 MG DAILY 10/10 1158 AC 10/12 PO 1007 Vancomycin HCl 1,000 MG DAILY 10/13 1000 UNir Sodium Chloride 250 ML IV Laboratory Tests 10/13 0705 Chemistry Sodium (137 - 145 mmol/L) 138 Potassium (3.5 - 5.1 mmol/L) 3.4 L Chloride (98 - 107 mmol/L) 85 L Carbon Dioxide (22 - 30 mmol/L) 48 H Anion Gap (5 - 16) 5 BUN (7 - 17 mg/dL) 12 Creatinine (0.5 - 1.0 mg/dL) 0.6 Estimated GFR (>60 ml/min) > 60 BUN/Creatinine Ratio (7 - 25 %) 20.0 Hematology CBC w Diff NO MAN DIFF REQ WBC (4.8 - 10.8 /CUMM) 9.7 RBC (4.20 - 5.40 /CUMM) 3.53 L Hgb (12.0 - 16.0 G/DL) 9.6 L Hct (37 - 47 %) 30.9 L MCV (81.0 - 99.0 FL) 87.4 MCH (27.0 - 31.0 PG) 27.0 RDW (11.5 - 14.5 %) 17.5 H Plt Count (130 - 400 /CUMM) 257 MPV (7.4 - 10.4 FL) 9.2 Gran % (42.2 - 75.2 %) 83.5 H Lymphocytes % (20.5 - 51.1 %) 6.7 L Monocytes % (1.7 - 9.3 %) 5.3 Eosinophils % (0 - 5 %) 4.3 Basophils % (0.0 - 2.0 %) 0.2 Absolute Granulocytes (1.4 - 6.5 /CUMM) 8.1 H Absolute Lymphocytes (1.2 - 3.4 /CUMM) 0.6 L Absolute Monocytes (0.10 - 0.60 /CUMM) 0.5 Absolute Eosinophils (0.0 - 0.7 /CUMM) 0.4 Absolute Basophils (0.0 - 0.2 /CUMM) 0 PUBS MCHC (33.0 - 37.0 G/DL) 31.0 L Vital Signs Date Time Temp Pulse Resp B/P B/P Pulse O2 O2 Flow FiO2 Mean Ox Delivery Rate 10/13 0655 97.9 79 20 116/82 95 Nasal 3.0L Cannula 10/13 0000 Nasal 3.0L Cannula 10/12 2200 98.0 84 21 104/60 96 Nasal 3.0L Cannula 10/12 2153 104/60 10/12 2027 93 Nasal 3.0L Cannula 10/12 202 95 Nasal 3.0L Cannula 10/12 1600 94 Nasal 3.0L Cannula 10/12 1541 97.9 78 18 118/70 95 Room Air 10/12 1055 94 Nasal 3.0L Cannula 10/12 1007 93 137/64
--- NOTE | 2016-10-13 13:18 | RADIOLOGY REPORT ---
EXAMINATION: FLUOROSCOPY UPPER GI SINGLE CONTRAST WITH KUB CLINICAL INFORMATION: Questionable length of history of nausea and vomiting. Now better. COMPARISON: Upper GI exam dated 01/20/2007. TECHNIQUE: A wire basket maker view of the abdomen was performed followed by a single contrast upper GI study with the patient in the left lateral oblique and supine positions. 7 cine series and spot films were acquired. FINDINGS: Evaluation is limited due to difficulties with patient positioning. The patient was unable to stand and had limited mobility and limited ability to drink adequate amounts of contrast to distend the stomach. Following findings are seen: Oropharyngeal phase of swallowing is normal with no laryngeal or nasopharyngeal aspiration seen. Prominent cricopharyngeus impression upon the anterior lower cervical esophagus is seen. There is also relative smooth narrowing of the distal esophagus at the GE junction level, producing a pseudoachalasia type appearance. There is significant esophageal dysmotility with premature breakup of the primary wave of peristalsis and multiple tertiary contractions seen, which lead to stasis of esophageal contents and delay in esophageal emptying. There is to and fro motion of the barium within the esophagus with retrograde flow of barium up to the level of the hypopharynx, placing the patient at risk for retrograde aspiration. No aspiration was observed during this exam, but the patient did feel uncomfortable and nauseous and refused additional barium ingestion. The stomach is incompletely assessed due to underdistention and patient immobility, but appears grossly unremarkable. Duodenal bulb and C-sweep are also grossly unremarkable. No ulceration or mass appreciated. FLUOROSCOPY TIME: 1 minute 16 seconds. IMPRESSION: 1. Limited exam. 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 This places the patient at risk for retrograde aspiration. 2. Stomach, duodenal bulb and duodenal C-sweep suboptimally assessed, but grossly unremarkable.
[2016-10-13 14:18] VITALS: BP 100/78
--- NOTE | 2016-10-13 15:55 | Cons- Infect Disease ---
General Information and HPI Consulting Request Date of Consult: 10/13/16 Requested By: RAPHAEL TROY MD Reason for Consult: Positive blood culture for gram-positive cocci in clusters Source of Information: patient, old records History of Present Illness: This is an 89-year-old woman, [facility] resident, with hypertension, diastolic heart failure, atrial fibrillation, maintained on Pradaxa, COPD, maintained on 3 L of oxygen, rheumatoid arthritis, maintained on methotrexate weekly and prednisone 5 mg a day, chronic back pain, maintained on a Fentanyl patch, with a several month history of dysphagia, apparently treated for a urinary tract infection 1-2 months prior to admission, with multiple urine cultures over the past 3 years positive for ESBL producing Escherichia coli, admitted on October 10 after she was found minimally responsive, followed by recurrent episodes of nausea, vomiting and hypoxia. On admission she was afebrile. Laboratory data revealed a white blood cell count of 12,000, BUN/ creatinine 12 and 0.5, CO2 49, proBNP 2440, ABG 7.39/73/59 on 4 L/m. Urinalysis rare RBC/5-10 WBCs. Chest x-ray revealed mild atelectasis at the lung bases. She was begun on Unasyn for presumed aspiration pneumonia. She was evaluated by speech therapy, with no evidence for aspiration, but an upper GI series was ordered today per GI. On October 12 she was changed from Unasyn to Augmentin, which was discontinued today after her urine culture grew ESBL producing Escherichia coli resistant to Augmentin. This morning 1 blood culture from admission was reported positive for gram-positive cocci in clusters. She has remained afebrile since admission (on prednisone) and her white blood cell count quickly normalized and has remained normal. At present she feels back to her baseline, with no complaints of shortness of breath or cough. She does note left sided chest pain, worse with movement, which she states has been present for several months. She denies any dysuria or diarrhea. Allergies/Medications Allergies: Coded Allergies: Sulfa (Sulfonamide Antibiotics) (UNKNOWN 10/10/16) Home Med List: Alprazolam (Xanax) 0.25 MG TABLET 0.5 TAB PO QPM SLEEP (Reported) Chlorthalidone 25 MG TABLET 0.5 TAB PO DAILY EDEMA (Reported) Dabigatran Etexilate Mesylate (Pradaxa 150 MG) 150 MG CAPSULE 1 CAP PO BID AFIB (Reported) Docusate Sodium (Colace) 100 MG CAPSULE 2 CAP PO DAILY CONSTIPATION (Reported ) Docusate Sodium (Colace) 100 MG CAPSULE 1 CAP PO QPM CONSTIPATION (Reported) Ergocalciferol (Vitamin D2) (Vitamin D2) 50,000 UNIT CAPSULE 1 CAP PO Q30D VITAMIN SUPPORT (Reported) Esomeprazole (Nexium) 40 MG CAPSULE.DR 1 CAP PO DAILY ACID REFLUX (Reported) Fentanyl 75 MCG/HOUR PATCH.TD72 1 PAT TOP Q3D PAIN (Reported) Folic Acid 1 MG TABLET 1 TAB PO DAILY SUPPLEMENT (Reported) Furosemide (Lasix) 40 MG TABLET 1 TAB PO DAILY WATER PILL (Reported) Gabapentin 800 MG TABLET 1 TAB PO TID NEUROPATHY (Reported) Lidocaine (Lidoderm) 5 % ADH..PATCH 1 PAT TOP DAILY PAIN (Reported) may wear up to 12 hours Magnesium Oxide 400 MG TABLET 1 TAB PO DAILY SUPPLEMENT (Reported) Melatonin 3 MG TABLET 2 TAB PO QPM SLEEP (Reported) Methotrexate 2.5 MG TABLET 6 TAB PO QWED ARTHRITIS (Reported) Metoprolol Tartrate (Lopressor) 100 MG TABLET 1 TAB PO BID AFIB (Reported) Potassium Chloride (K-Tab ER) 20 MEQ TABLET.ER 2 TAB PO BID SUPPLEMENT ( Reported) Prednisone 5 MG TABLET 1 TAB PO DAILY ARTHRITIS (Reported) Sennosides (Senna) 8.6 MG TABLET 1 TAB PO DAILY CONSTIPATION (Reported) Sertraline HCl 50 MG TABLET 2.5 TAB PO DAILY DEPRESSION (Reported) Past History Travel History Traveled to [place] past 21 day No Medical History Neurological: GENERAL WEAKNESS EENT: NONE Cardiovascular: AFIB, CHF, hypertension, ANEMIA HEART FAILURE Respiratory: NONE Gastrointestinal: GERD Hepatic: NONE Renal: NONE Musculoskeletal: chronic back pain, osteoarthritis, rheumatoid arthritis, spinal stenosis, ARTHRITIS Psychiatric: NONE Endocrine: NONE Blood Disorders: anemia BRACER/Reproductive: UTI, UROSEPSIS History of MRSA: No History of VRE: No History of CDIFF: No Isolation History: Contact (ESBL) Pneumonia Vaccine: 03/30/07 Influenza Vaccine: 02/27/13 Surgical History Surgical History: cholecystectomy, hernia repair-inguinal, hysterectomy, status post back surgery Family History Relations & Conditions If Any: MOTHER, , Age 60+; Cause: Myocardial infarct. FATHER, , Age 60+; Cause: Throat cancer. Relation not specified for: Diabetes mellitus (DM) Fam hx-ischem heart disease Psychosocial History Where Do You Live? [facility] Services at Home: Physical Therapy Smoking Status: Never Smoked ETOH Use: denies use Illicit Drug Use: denies illicit drug use Living Will? yes Power of Cracker And Cookie Machine Operator/HCP? yes Name of POA/HCP: son (david wray) Functional Ability ADLs Needs Assist: dressing, eating, toileting, bathing. Ambulation: walker Review of Systems Review of Systems GI: Reports: constipation. Genitourinary: Reports: no symptoms. All Other Systems: Reviewed and Negative Exam & Diagnostic Data Last 24 Hrs of Vital Signs/I&O Vital Signs Date Time Temp Pulse Resp B/P B/P Pulse O2 O2 Flow FiO2 Mean Ox Delivery Rate 10/13 1418 98.1 73 20 100/78 95 Nasal 3.0L Cannula 10/13 1224 78 118/78 10/13 1122 95 Nasal 3.0L Cannula 10/13 0800 95 Nasal 3.0L Cannula 10/13 0655 97.9 79 20 116/82 95 Nasal 3.0L Cannula 10/13 0000 Nasal 3.0L Cannula 10/12 2200 98.0 84 21 104/60 96 Nasal 3.0L Cannula 10/12 2153 104/60 10/12 2027 93 Nasal 3.0L Cannula 10/12 202 95 Nasal 3.0L Cannula 10/12 1600 94 Nasal 3.0L Cannula Intake & Output 10/13 1600 10/13 0800 10/13 0000 Intake Total 810 340 Output Total 51 Balance 759 340 Intake, IV 10 Intake, Oral 800 340 Number 2 Bowel Movements Output, Stool 1 Output, Urine 50 Patient 189 lb Weight Physical Exam Other Physical Findings: She is awake and alert in no acute distress. She is afebrile on steroids. Skin reveals no rash. HEENT exam is negative. Neck is supple with no adenopathy. Lungs bibasilar crackles. Heart irregular rhythm with no murmur. Abdomen is obese, soft, nontender with positive bowel sounds. Back no CVA tenderness. Extremities no cyanosis, clubbing or edema. Neuro is without focality. Last 24 Hours of Lab Results: Laboratory Tests 10/13 0705 Chemistry Sodium (137 - 145 mmol/L) 138 Potassium (3.5 - 5.1 mmol/L) 3.4 L Chloride (98 - 107 mmol/L) 85 L Carbon Dioxide (22 - 30 mmol/L) 48 H Anion Gap (5 - 16) 5 BUN (7 - 17 mg/dL) 12 Creatinine (0.5 - 1.0 mg/dL) 0.6 Estimated GFR (>60 ml/min) > 60 BUN/Creatinine Ratio (7 - 25 %) 20.0 Hematology CBC w Diff NO MAN DIFF REQ WBC (4.8 - 10.8 /CUMM) 9.7 RBC (4.20 - 5.40 /CUMM) 3.53 L Hgb (12.0 - 16.0 G/DL) 9.6 L Hct (37 - 47 %) 30.9 L MCV (81.0 - 99.0 FL) 87.4 MCH (27.0 - 31.0 PG) 27.0 RDW (11.5 - 14.5 %) 17.5 H Plt Count (130 - 400 /CUMM) 257 MPV (7.4 - 10.4 FL) 9.2 Gran % (42.2 - 75.2 %) 83.5 H Lymphocytes % (20.5 - 51.1 %) 6.7 L Monocytes % (1.7 - 9.3 %) 5.3 Eosinophils % (0 - 5 %) 4.3 Basophils % (0.0 - 2.0 %) 0.2 Absolute Granulocytes (1.4 - 6.5 /CUMM) 8.1 H Absolute Lymphocytes (1.2 - 3.4 /CUMM) 0.6 L Absolute Monocytes (0.10 - 0.60 /CUMM) 0.5 Absolute Eosinophils (0.0 - 0.7 /CUMM) 0.4 Absolute Basophils (0.0 - 0.2 /CUMM) 0 PUBS MCHC (33.0 - 37.0 G/DL) 31.0 L Last 24 Hours of Jerry Results: Blood cultures October 10 one bottle positive for gram-positive cocci in clusters Urine culture October 10 greater than 100,000 colonies of ESBL producing Escherichia coli Diagnostic Data Recent Imaging Findings: Chest x-ray October 10, personally reviewed, reveals mild atelectasis at the lung bases and mild cardiomegaly Chest x-ray October 11, personally reviewed, without significant change from the previous study CT of the head October 12 no acute process Upper GI series October 13 reveals findings consistent with pseudoachalasia with multiple tertiary nonpropulsive contractions leading to delayed esophageal emptying and retrograde reflux of contrast up to the level of the hypopharynx Assessment/Plan Assessment/Plan Impression: This is an 89-year-old woman, [facility] resident, with hypertension, diastolic heart failure, atrial fibrillation, COPD, maintained on 3 L of oxygen, rheumatoid arthritis, maintained on methotrexate weekly and prednisone 5 mg a day, chronic back pain, maintained on a Fentanyl patch, with a several month history of dysphagia, admitted on October 10 after an episode of unresponsiveness, followed by nausea and vomiting, found to be afebrile with a mild leukocytosis and with a negative chest x-ray, treated empirically with Unasyn for aspiration, and found to have a positive urine culture for ESBL producing Escherichia coli and 1 positive blood culture. I suspect that the positive blood culture represents a contaminant as it is only one bottle and 3 days old and do not feel she requires treatment for this. The positive urine culture most likely represents colonization and, as she has no urinary symptoms, should not require treatment. The results of her upper GI series are noted and likely explain her dysphagia. Her decreased responsiveness prior to admission likely is related to her Fentanyl patch, and, perhaps, the dose can be reduced. Suggestion: 1. Further recommendations regarding her upper GI series findings per Speech therapy and GI 2. Would consider a reduction of the dose of her Fentanyl patch 3. Follow-up results of the recent positive blood culture 4. Would follow off antibiotics pending above Consult Acknowledgment - Thank you for your consult request.
[2016-10-13 22:11] VITALS: BP 126/60
--- NOTE | 2016-10-14 06:58 | PN- Housestaff ---
Subjective Follow-up For: Nausea/vomiting; Diplopia; Possible aspiration pneumonia Complaints: no complaints Subjective: I followed up and examined the patient today. She is resting comfortably in bed , not in distress, does not offer any complaints. Has double vision occassionally, there is no more nausea, and she doesn't have headache, fever or chills. Vitals have been stable overnight, no other issues. Review of Systems Constitutional: Reports: no symptoms. Objective Last 24 Hrs of Vital Signs/I&O Vital Signs Date Time Temp Pulse Resp B/P B/P Pulse O2 O2 Flow FiO2 Mean Ox Delivery Rate 10/14 1145 94 Nasal 3.0L Cannula 10/14 1040 76 130/80 10/14 0800 94 Nasal 3.0L Cannula 10/14 0729 98.3 77 20 122/58 95 Nasal 3.0L Cannula 10/14 0718 97.9 76 22 138/78 91 Nasal 3.0L Cannula 10/14 0000 Nasal 3.0L Cannula 10/13 2211 98.4 84 19 126/60 95 Nasal 3.0L Cannula 10/13 2114 84 126/60 10/13 1900 94 Nasal 3.0L Cannula 10/13 1600 95 Nasal 3.0L Cannula 10/13 1418 98.1 73 20 100/78 95 Nasal 3.0L Cannula Intake & Output 10/14 1600 10/14 0800 10/14 0000 Intake Total 600 Output Total 300 100 Balance -300 500 Intake, Oral 600 Output, Urine 300 100 Physical Exam General Appearance: Alert, Oriented X3, Cooperative, No Acute Distress, obese Other Physical Findings: Cardiovascular: Regular Rate, Normal S1, Normal S2 Lungs: Clear to Auscultation, Normal Air Movement Abdomen: Normal Bowel Sounds, Soft, No Tenderness Neurological: grossly intact, eye and EOM examination normal Current Medications: Current Medications Sig/Dean Start time Last Medication Dose Route Stop Time Status Admin Albuterol Sulfate 3 ML Q4P PRN 10/13 2245 AC INH Albuterol Sulfate 3 ML BID 10/11 1000 DC 10/13 INH 1900 Alprazolam 0.125 MG QPM 10/10 2200 AC 10/11 PO 10/17 2158 2328 Calcium Carbonate 500 MG ONCE ONE 10/14 0715 DC 10/14 PO 10/14 0716 0723 Chlorthalidone 12.5 MG DAILY 10/11 1000 AC 10/14 PO 1040 Dabigatran 150 MG BID 10/10 2200 AC 10/14 PO 1039 Docusate Sodium 200 MG DAILY 10/11 1000 AC 10/12 PO 1007 Fentanyl Citrate 50 MCG Q72H 10/11 1300 AC 10/11 TOP 1309 Folic Acid 1 MG DAILY 10/11 1000 AC 10/14 PO 1039 Furosemide 40 MG DAILY 10/11 1000 AC 10/14 PO 1039 Gabapentin 800 MG Q8 10/10 1400 AC 10/14 PO 0623 Lidocaine 1 PAT AT BEDTIME 10/10 2245 AC 10/14 EXT 0010 Magnesium Oxide 400 MG DAILY 10/10 1156 AC 10/14 PO 1040 Melatonin 6 MG QPM 10/10 2200 AC 10/13 PO 2113 Methotrexate 15 MG QWED 10/13 0700 AC PO Metoprolol Tartrate 100 MG BID 10/10 2200 AC 10/14 PO 1040 Omeprazole 40 MG DAILY AC 10/10 1201 AC 10/14 PO 0623 Ondansetron HCl 4 MG Q6P PRN 10/10 1215 AC 10/11 IV 0807 Patient Medication 1 ED .STK-MED ONE 10/13 1331 DC Teaching ED 10/13 1332 Polyethylene Glycol 17 GM DAILY 10/13 1000 AC PO Potassium Chloride 20 MEQ ONCE ONE 10/14 0945 DC 10/14 PO 10/14 0946 1041 Potassium Chloride 20 MEQ ONCE ONE 10/13 1615 DC 10/13 PO 10/13 1616 2113 Potassium Chloride 40 MEQ DAILY 10/10 1157 AC 10/14 PO 1041 Prednisone 5 MG DAILY 10/10 1157 AC 10/14 PO 1039 Senna/Docusate Sodium 1 TAB BID PRN 10/10 1200 AC 10/12 PO 0605 Sertraline HCl 125 MG DAILY 10/10 1158 AC 10/14 PO 1039 Last 24 Hrs of Lab/Jerry Results Last 24 Hrs of Labs/Mics: Laboratory Tests 10/14/16 0715: Anion Gap 10, Estimated GFR > 60, BUN/Creatinine Ratio 18.0, Troponin I 0.01, CBC w Diff NO MAN DIFF REQ, RBC 3.87 L, MCV 86.8, MCH 27.2, RDW 17.7 H, MPV 8.9, Gran % 81.4 H, Lymphocytes % 9.0 L, Monocytes % 5.7, Eosinophils % 3.6, Basophils % 0.3, Absolute Granulocytes 8.1 H, Absolute Lymphocytes 0.9 L, Absolute Monocytes 0.6, Absolute Eosinophils 0.4, Absolute Basophils 0, PUBS MCHC 31.4 L Assessment/Plan Assessment: This is 89-year-old obese female with past medical history of diastolic heart failure, A. fib, rheumatoid arthritis on chronic methotrexate and prednisone, anemia, ESBL UTI, spinal stenosis was sent in from [facility] with chief complaint of unresponsiveness followed by an episode of bilious vomiting followed by an episode of hypoxia with significant increase in O2 requirement, and WBC suggestive of mild leukocytosis likely suggestive of aspiration pneumonitis/ pneumonia. Patient also noted having dirty urine on urinalysis which could be asymptomatic bacteriuria with chronic colonization of ESBL in absence of any urinary symptoms or fever. # Acute on chronic hypoxic respiratory failure, possibly due to Aspiration pneumonia, better today -continue monitoring in general medicine floor -Continue supplemental O2, now at baseline 3L/min to keep O2 sat above 92% -Continue TRC -IV Unasyn changed to Augmentin on 10/12/16, as the patinet was not febrile or had high WBCs, and didn't have any increased oxygen demand -Blood cx one set came to be GPC in clusters, watching off abx, per ID consultation, with patient being asymptomatic and the likelihood of contamination. Appreciate ID input. -Plan to discharge the patient if the positive blood cultures seem to be from contamination. -Follow-up sputum culture -continue Aspiration precaution -patient passed swallow eval, is on regular diet currently - repeat CXR shows left lower lobe haziness, but the patient is not symptomatic anymore and will not be pursuing only the images # Altered mental status/diplopia - Now improved - Likely in setting of opiates as patient is on fentanyl patch for spinal stenosis - decreased fentanyl dose from 75 to 50 on 10/11/16 and the patient is much alert since 10/12/16 - Monitor mental status, if noted further episode of change in mental status consider decreasing the dose of fentanyl patch or try nonopiate analgesics -Patient had complained of double vision/diplopia on 10/12/2016 to the attending. CAT scan of the head without contrast did not reveal any bleeding or acute changes. Thus neurological consultation was not pressured any further. # Acute gastroenteritis - Patient received 500 mL fluid in ER - Continue Zofran when necessary for nausea - Patient was seen by Dr. 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 According to Dr. Dumont, she would benefit from upper GI endoscopy, but this can be done as an outpatient basis. - continue Aspiration precaution # Asymptomatic bacteriuria - Patient denies any fever or urinary symptoms -Urine culture showed Escherichia coli that is ESBL, but the patient is asymptomatic so will not be treating it. # Normocytic anemia - Likely anemia of chronic disease due to rheumatoid arthritis - H&H stable - Monitor H&H # Hypokalemia - patient has 40meq of potassium supplement daily, but due to low potassium level this morning, was supplemented on top of it. - repleted again today orally # History of congestive heart failure - Patient on physical exam noted having bilateral crackles and trace pedal edema , lab shows elevated proBNP, suggesting CHF. She received 1 dose of IV Lasix - continue home dose Lasix 40 mg daily - Strict I/O's - Daily weight - Keep K > 4, mg > 2 repeat as needed # Rheumatoid arthritis - Continue weekly dose of methotrexate 15 mg - Continue prednisone 5 mg daily # Spinal stenosis - Continue pain management with fentanyl patch (decreased dose), Lidoderm patch, gabapentin - Bowel regimen to avoid constipation # Hypertension Continue home dose chlorthalidone, Lasix and metoprolol # Atrial fibrillation - Continue metoprolol 100 mg twice a day for rate control - Continue PRADEXA 150 mg twice a day for anticoagulation # Anxiety/depression Continue Xanax 0.125 at bedtime and Zoloft 2.5 mg daily # DVT prophylaxis on pradaxa # DNR/DNI Problem List: 1. Nausea & vomiting 2. Acute respiratory failure 3. Diplopia 4. Achalasia 5. Aspiration into airway 6. ATRIAL FIBRILATION 7. Hypokalemia Pain Ratin Pain Location: - Pain Goal: Pain 4 or less Pain Plan: prn Tomorrow's Labs & Rationales: CBC, BEP to replete lytes Pain Ratin Pain Location: - Pain Goal: Pain 4 or less Pain Plan: prn Tomorrow's Labs & Rationales: CBC, BEP to replete lytes CBC, BEP to replete lytes
[2016-10-14 07:18] VITALS: BP 138/78
[2016-10-14 07:29] VITALS: BP 122/58
[2016-10-14 07:57] LABS: ABSOLUTE BASOPHIL COUNT 0 /CUMM (0.0-0.2); ABSOLUTE EOSINOPHIL COUNT 0.4 /CUMM (0.0-0.7); ABSOLUTE GRANULOCYTE CT 8.1 /CUMM (1.4-6.5); ABSOLUTE LYMPH COUNT 0.9 /CUMM (1.2-3.4); ABSOLUTE MONOCYTE COUNT 0.6 /CUMM (0.10-0.60); BASOPHIL % 0.3 % (0.0-2.0); EOSINOPHIL % 3.6 % (0-5); GRANULOCYTE % 81.4 % (42.2-75.2); HEMATOCRIT 33.6 % (37-47); MEAN CORPUSCULAR HGB 27.2 PG (27.0-31.0); MEAN CORPUSCULAR HGB CONC 31.4 G/DL (33.0-37.0); MEAN CORPUSCULAR VOLUME 86.8 FL (81.0-99.0); MEAN PLATELET VOLUME 8.9 FL (7.4-10.4); PLATELET COUNT 277 /CUMM (130-400); RBC DISTRIBUTION WIDTH 17.7 % (11.5-14.5); RED BLOOD CELL CT 3.87 /CUMM (4.20-5.40); WHITE BLOOD CELL COUNT 9.9 /CUMM (4.8-10.8)
--- NOTE | 2016-10-14 09:26 | PN- Att Addend ---
Attending Addendum Attending Brief Note Patient is awake and alert this morning responding appropriately to all the questions. She remains on 3 L of oxygen which is about her baseline according to the patient. 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 Gram positive cocci in blood possible contamination per ID followed off abx. Will await for culture identification and discuss with GI the barium findings. She may need outpt EGD. Plan Follow blood cultures Continue fentanyl patch to 50 g once daily Aspiration precautions Replete potassium Continue other home medications DVT prophylaxis Current Medications Sig/Dean Start time Last Medication Dose Route Stop Time Status Admin Albuterol Sulfate 3 ML Q4P PRN 10/13 2245 AC INH Albuterol Sulfate 3 ML BID 10/11 1000 DC 10/13 INH 1900 Alprazolam 0.125 MG QPM 10/10 2200 AC 10/11 PO 10/17 2159 2328 Amoxicillin/ 500 MG Q8 10/12 1400 DC 10/12 Clavulanate Potassium PO 10/15 2300 2153 Calcium Carbonate 500 MG ONCE ONE 10/14 0715 DC 10/14 PO 10/14 0716 0723 Chlorthalidone 12.5 MG DAILY 10/11 1000 AC 10/13 PO 1224 Dabigatran 150 MG BID 10/10 2200 AC 10/13 PO 2113 Docusate Sodium 200 MG DAILY 10/11 1000 AC 10/12 PO 1007 Fentanyl Citrate 50 MCG Q72H 10/11 1300 AC 10/11 TOP 1309 Folic Acid 1 MG DAILY 10/11 1000 AC 10/13 PO 1225 Furosemide 40 MG DAILY 10/11 1000 AC 10/13 PO 1225 Gabapentin 800 MG Q8 10/10 1400 AC 10/14 PO 0623 Lidocaine 1 PAT AT BEDTIME 10/10 2245 AC 10/14 EXT 0010 Magnesium Oxide 400 MG DAILY 10/10 1156 AC 10/13 PO 1224 Melatonin 6 MG QPM 10/10 2200 AC 10/13 PO 2113 Methotrexate 15 MG QWED 10/13 0700 AC PO Metoprolol Tartrate 100 MG BID 10/10 2200 AC 10/13 PO 211 Omeprazole 40 MG DAILY AC 10/10 1201 AC 10/14 PO 0623 Ondansetron HCl 4 MG Q6P PRN 10/10 1215 AC 10/11 IV 0807 Patient Medication 1 ED .STK-MED ONE 10/13 1331 DC Teaching ED 10/13 1332 Polyethylene Glycol 17 GM DAILY 10/13 1000 AC PO Potassium Chloride 20 MEQ ONCE ONE 10/13 1615 DC 10/13 PO 10/13 1616 2113 Potassium Chloride 40 MEQ DAILY 10/10 1157 AC 10/13 PO 1224 Prednisone 5 MG DAILY 10/10 1157 AC 10/13 PO 1224 Senna/Docusate Sodium 1 TAB BID PRN 10/10 1200 AC 10/12 PO 0605 Sertraline HCl 125 MG DAILY 10/10 1158 AC 10/12 PO 1007 Vancomycin HCl 1,000 MG DAILY 10/13 1000 DC Sodium Chloride 250 ML IV Laboratory Tests 10/14 0715 Chemistry Sodium (137 - 145 mmol/L) 140 Potassium (3.5 - 5.1 mmol/L) 3.4 L Chloride (98 - 107 mmol/L) 86 L Carbon Dioxide (22 - 30 mmol/L) 44 H Anion Gap (5 - 16) 10 BUN (7 - 17 mg/dL) 9 Creatinine (0.5 - 1.0 mg/dL) 0.5 Estimated GFR (>60 ml/min) > 60 BUN/Creatinine Ratio (7 - 25 %) 18.0 Troponin I (< 0.11 ng/ml) 0.01 Hematology CBC w Diff NO MAN DIFF REQ WBC (4.8 - 10.8 /CUMM) 9.9 RBC (4.20 - 5.40 /CUMM) 3.87 L Hgb (12.0 - 16.0 G/DL) 10.6 L Hct (37 - 47 %) 33.6 L MCV (81.0 - 99.0 FL) 86.8 MCH (27.0 - 31.0 PG) 27.2 RDW (11.5 - 14.5 %) 17.7 H Plt Count (130 - 400 /CUMM) 277 MPV (7.4 - 10.4 FL) 8.9 Gran % (42.2 - 75.2 %) 81.4 H Lymphocytes % (20.5 - 51.1 %) 9.0 L Monocytes % (1.7 - 9.3 %) 5.7 Eosinophils % (0 - 5 %) 3.6 Basophils % (0.0 - 2.0 %) 0.3 Absolute Granulocytes (1.4 - 6.5 /CUMM) 8.1 H Absolute Lymphocytes (1.2 - 3.4 /CUMM) 0.9 L Absolute Monocytes (0.10 - 0.60 /CUMM) 0.6 Absolute Eosinophils (0.0 - 0.7 /CUMM) 0.4 Absolute Basophils (0.0 - 0.2 /CUMM) 0 PUBS MCHC (33.0 - 37.0 G/DL) 31.4 L Vital Signs Date Time Temp Pulse Resp B/P B/P Pulse O2 O2 Flow FiO2 Mean Ox Delivery Rate 10/14 0729 98.3 77 20 122/58 95 Nasal 3.0L Cannula 10/14 0718 97.9 76 22 138/78 91 Nasal 3.0L Cannula 10/14 0000 Nasal 3.0L Cannula 10/13 2211 98.4 84 19 126/60 95 Nasal 3.0L Cannula 10/13 2114 84 126/60 10/13 1900 94 Nasal 3.0L Cannula 10/13 1600 95 Nasal 3.0L Cannula 10/13 1418 98.1 73 20 100/78 95 Nasal 3.0L Cannula 10/13 1224 78 118/78 10/13 1122 95 Nasal 3.0L Cannula
[2016-10-14 14:36] VITALS: BP 110/72
--- NOTE | 2016-10-14 17:40 | PN- Infect Dx ---
Subjective Subjective: Afebrile. She continues to report occasional left sided chest pain, worse with movement, which she states she has had for several months. Objective Last 24 Hrs of Vital Signs/I&O Vital Signs Date Time Temp Pulse Resp B/P B/P Pulse O2 O2 Flow FiO2 Mean Ox Delivery Rate 10/14 1436 97.9 81 20 110/72 98 Nasal 3.0L Cannula 10/14 1145 94 Nasal 3.0L Cannula 10/14 1040 76 130/80 10/14 0800 94 Nasal 3.0L Cannula 10/14 0729 98.3 77 20 122/58 95 Nasal 3.0L Cannula 10/14 0718 97.9 76 22 138/78 91 Nasal 3.0L Cannula 10/14 0000 Nasal 3.0L Cannula 10/13 2211 98.4 84 19 126/60 95 Nasal 3.0L Cannula 10/13 2114 84 126/60 10/13 1900 94 Nasal 3.0L Cannula Intake & Output 10/14 1600 10/14 0800 10/14 0000 Intake Total 910 600 Output Total 750 100 Balance 160 500 Intake, IV 10 Intake, Oral 900 600 Number 0 Bowel Movements Output, Urine 750 100 Physical Exam Other Physical Findings: She appears comfortable in no acute distress Chest mildly tender on palpation over the left chest Lungs bibasilar crackles Heart regular rhythm with no murmur Extremities no cyanosis, clubbing or edema Results Last 24 Hours of Lab Results: Laboratory Tests 10/14 0715 Chemistry Sodium (137 - 145 mmol/L) 140 Potassium (3.5 - 5.1 mmol/L) 3.4 L Chloride (98 - 107 mmol/L) 86 L Carbon Dioxide (22 - 30 mmol/L) 44 H Anion Gap (5 - 16) 10 BUN (7 - 17 mg/dL) 9 Creatinine (0.5 - 1.0 mg/dL) 0.5 Estimated GFR (>60 ml/min) > 60 BUN/Creatinine Ratio (7 - 25 %) 18.0 Troponin I (< 0.11 ng/ml) 0.01 Hematology CBC w Diff NO MAN DIFF REQ WBC (4.8 - 10.8 /CUMM) 9.9 RBC (4.20 - 5.40 /CUMM) 3.87 L Hgb (12.0 - 16.0 G/DL) 10.6 L Hct (37 - 47 %) 33.6 L MCV (81.0 - 99.0 FL) 86.8 MCH (27.0 - 31.0 PG) 27.2 RDW (11.5 - 14.5 %) 17.7 H Plt Count (130 - 400 /CUMM) 277 MPV (7.4 - 10.4 FL) 8.9 Gran % (42.2 - 75.2 %) 81.4 H Lymphocytes % (20.5 - 51.1 %) 9.0 L Monocytes % (1.7 - 9.3 %) 5.7 Eosinophils % (0 - 5 %) 3.6 Basophils % (0.0 - 2.0 %) 0.3 Absolute Granulocytes (1.4 - 6.5 /CUMM) 8.1 H Absolute Lymphocytes (1.2 - 3.4 /CUMM) 0.9 L Absolute Monocytes (0.10 - 0.60 /CUMM) 0.6 Absolute Eosinophils (0.0 - 0.7 /CUMM) 0.4 Absolute Basophils (0.0 - 0.2 /CUMM) 0 PUBS MCHC (33.0 - 37.0 G/DL) 31.4 L Last 24 Hours of Jerry Results: Blood cultures October 10 one bottle with gram-positive cocci seen on the gram stain , but with no growth so far on the plates Assessment/Plan Impression: Stable off antibiotics with temperatures and white blood cell count remaining normal. The positive blood culture did not grow on the plates and likely represents a contaminant. Suggestion: 1. Follow-up final results of the recent positive blood culture 2. Continue to follow off antibiotics pending above
[2016-10-14 23:00] VITALS: BP 117/59
[2016-10-15 07:41] VITALS: BP 132/78
--- NOTE | 2016-10-15 09:29 | PN- Att Addend ---
Attending Addendum Attending Brief Note Patient is awake and alert this morning responding appropriately to all the questions. She remains on 3 L of oxygen which is about her baseline according to the patient. 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 Gram positive cocci in blood possible contamination per ID followed off abx. She may need outpt EGD. Plan Follow blood cultures Continue fentanyl patch to 50 g once daily Aspiration precautions Replete potassium Continue other home medications DVT prophylaxis Current Medications Sig/Dean Start time Last Medication Dose Route Stop Time Status Admin Albuterol Sulfate 3 ML Q4P PRN 10/13 2245 AC INH Alprazolam 0.125 MG QPM 10/10 2200 AC 10/11 PO 10/17 2159 2328 Chlorthalidone 12.5 MG DAILY 10/11 1000 AC 10/14 PO 1040 Dabigatran 150 MG BID 10/10 2200 AC 10/14 PO 2218 Docusate Sodium 200 MG DAILY 10/11 1000 AC 10/12 PO 1007 Fentanyl Citrate 50 MCG Q72H 10/11 1300 AC 10/14 TOP 1335 Folic Acid 1 MG DAILY 10/11 1000 AC 10/14 PO 1039 Furosemide 40 MG DAILY 10/11 1000 AC 10/14 PO 1039 Gabapentin 800 MG Q8 10/10 1400 AC 10/15 PO 0513 Lidocaine 1 PAT AT BEDTIME 10/10 2245 AC 10/14 EXT 2309 Magnesium Oxide 400 MG DAILY 10/10 1156 AC 10/14 PO 1040 Melatonin 6 MG QPM 10/10 2200 AC 10/14 PO 2218 Methotrexate 15 MG QWED 10/13 0700 AC PO Metoprolol Tartrate 100 MG BID 10/10 2200 AC 10/14 PO 2219 Omeprazole 40 MG DAILY AC 10/10 1201 AC 10/15 PO 0513 Ondansetron HCl 4 MG Q6P PRN 10/10 1215 AC 10/14 IV 1804 Polyethylene Glycol 17 GM DAILY 10/13 1000 AC PO Potassium Chloride 40 MEQ ONCE ONE 10/14 1445 DC 10/14 PO 10/14 1446 1615 Potassium Chloride 20 MEQ ONCE ONE 10/14 0945 DC 10/14 PO 10/14 0946 1041 Potassium Chloride 40 MEQ DAILY 10/10 1157 AC 10/14 PO 1041 Prednisone 5 MG DAILY 10/10 1157 AC 10/14 PO 1039 Senna/Docusate Sodium 1 TAB BID PRN 10/10 1200 AC 10/12 PO 0605 Sertraline HCl 125 MG DAILY 10/10 1158 AC 10/14 PO 1039 Vital Signs Date Time Temp Pulse Resp B/P B/P Pulse O2 O2 Flow FiO2 Mean Ox Delivery Rate 10/15 0741 989.3 61 20 132/78 98 Nasal 3.0L Cannula 10/15 0000 Nasal 3.0L Cannula 10/14 2300 98.7 96 20 117/59 95 Nasal 3.0L Cannula 10/14 2219 96 117/59 10/14 1907 Nasal 3.0L Cannula 10/14 1600 Nasal 3.0L Cannula 10/14 1436 97.9 81 20 110/72 98 Nasal 3.0L Cannula 10/14 1145 94 Nasal 3.0L Cannula 10/14 1040 76 130/80
--- NOTE | 2016-10-15 10:39 | PN- Housestaff ---
Subjective Follow-up For: Nausea/vomiting; Diplopia; Possible aspiration pneumonia Complaints: no complaints Subjective: I followed up and examined the patient today. She is resting comfortably in bed , not in distress, does not offer any complaints. Has double vision occassionally, there is no more nausea, and she doesn't have headache, fever or chills. Vitals have been stable overnight, no other issues. Review of Systems Constitutional: Reports: no symptoms. Objective Last 24 Hrs of Vital Signs/I&O Vital Signs Date Time Temp Pulse Resp B/P B/P Pulse O2 O2 Flow FiO2 Mean Ox Delivery Rate 10/15 1432 98.8 98 20 130/66 95 Nasal 3.0L Cannula 10/15 1145 72 112/764 10/15 1130 98 Nasal 3.0L Cannula 10/15 0800 95 Nasal 3.0L Cannula 10/15 0741 989.3 61 20 132/78 98 Nasal 3.0L Cannula 10/15 0000 Nasal 3.0L Cannula 10/14 2300 98.7 96 20 117/59 95 Nasal 3.0L Cannula 10/14 2219 96 117/59 Intake & Output 10/15 1600 10/15 0800 10/15 0000 Intake Total 720 240 250 Output Total 100 Balance 720 240 150 Intake, Oral 720 240 250 Output, Urine 100 Physical Exam General Appearance: Alert, Oriented X3, Cooperative, No Acute Distress, obese Other Physical Findings: Cardiovascular: Regular Rate, Normal S1, Normal S2 Lungs: Clear to Auscultation, Normal Air Movement Abdomen: Normal Bowel Sounds, Soft, No Tenderness Neurological: grossly intact, eye and EOM examination normal Current Medications: Current Medications Sig/Dean Start time Last Medication Dose Route Stop Time Status Admin Albuterol Sulfate 3 ML Q4P PRN 10/13 2245 AC 10/15 INH 1131 Alprazolam 0.125 MG QPM 10/10 2199 AC 10/11 PO 10/17 2159 2328 Chlorthalidone 12.5 MG DAILY 10/11 1000 AC 10/15 PO 1146 Dabigatran 150 MG BID 10/10 2200 AC 10/15 PO 1146 Docusate Sodium 200 MG DAILY 10/11 1000 AC 10/15 PO 1144 Fentanyl Citrate 50 MCG Q72H 10/11 1300 AC 10/14 TOP 1335 Folic Acid 1 MG DAILY 10/11 1000 AC 10/15 PO 1145 Furosemide 40 MG DAILY 10/11 1000 AC 10/15 PO 1145 Gabapentin 800 MG Q8 10/10 1400 AC 10/15 PO 1532 Lidocaine 1 PAT AT BEDTIME 10/10 2245 AC 10/14 EXT 2309 Magnesium Oxide 400 MG DAILY 10/10 1156 AC 10/15 PO 1145 Melatonin 6 MG QPM 10/10 2200 AC 10/14 PO 2218 Methotrexate 15 MG QWED 10/13 0700 AC PO Metoprolol Tartrate 100 MG BID 10/10 2200 AC 10/15 PO 1145 Omeprazole 40 MG DAILY AC 10/10 1201 AC 10/15 PO 0513 Ondansetron HCl 4 MG Q6P PRN 10/10 1215 AC 10/14 IV 1804 Patient Medication 1 ED ONE ONE 10/15 1400 DC Teaching ED 10/15 1401 Polyethylene Glycol 17 GM DAILY 10/13 1000 AC PO Potassium Chloride 40 MEQ ONCE ONE 10/15 1130 DC 10/15 PO 10/15 1131 1144 Potassium Chloride 40 MEQ DAILY 10/10 1157 AC 10/15 PO 1144 Prednisone 5 MG DAILY 10/10 1157 AC 10/15 PO 1146 Senna/Docusate Sodium 1 TAB BID PRN 10/10 1200 AC 10/12 PO 0605 Sertraline HCl 125 MG DAILY 10/10 1158 AC 10/15 PO 1147 Assessment/Plan Assessment: This is 89-year-old obese female with past medical history of diastolic heart failure, A. fib, rheumatoid arthritis on chronic methotrexate and prednisone, anemia, ESBL UTI, spinal stenosis was sent in from [facility] with chief complaint of unresponsiveness followed by an episode of bilious vomiting followed by an episode of hypoxia with significant increase in O2 requirement, and WBC suggestive of mild leukocytosis likely suggestive of aspiration pneumonitis/ pneumonia. Patient also noted having dirty urine on urinalysis which could be asymptomatic bacteriuria with chronic colonization of ESBL in absence of any urinary symptoms or fever. # Acute on chronic hypoxic respiratory failure, possibly due to Aspiration pneumonia, resolved -continue monitoring in general medicine floor -Continue supplemental O2, now at baseline 3L/min to keep O2 sat above 92% -Continue TRC -IV Unasyn changed to Augmentin on 10/12/16, as the patinet was not febrile or had high WBCs, and didn't have any increased oxygen demand -Blood cx one set came to be [facility] in clusters, watching off abx, per ID consultation, with patient being asymptomatic and the likelihood of contamination. Appreciate ID input. -Plan to discharge the patient if the positive blood cultures seem to be from contamination. -Follow-up sputum culture -continue Aspiration precaution -patient passed swallow eval, is on regular diet currently - repeat CXR shows left lower lobe haziness, but the patient is not symptomatic anymore and will not be pursuing only the images # Altered mental status, resolved - Now improved - Likely in setting of opiates as patient is on fentanyl patch for spinal stenosis - decreased fentanyl dose from 75 to 50 on 10/11/16 and the patient is much alert since 10/12/16 - Monitor mental status, if noted further episode of change in mental status consider decreasing the dose of fentanyl patch or try nonopiate analgesics #Diplopia Patient had complained of double vision/diplopia on 10/12/2016 to the attending. CAT scan of the head without contrast did not reveal any bleeding or acute changes. Thus neurological consultation was not pressured any further. # Pseudoachalasia - Continue Zofran when necessary for nausea - Patient was seen by Dr. Derian Turpin, color drum worker and she received upper GI series which revealed pseudoachalasia that can increase risk of aspiration. According to Dr. Dumont, she would benefit from upper GI endoscopy, but this can be done as an outpatient basis. - continue Aspiration precaution # Asymptomatic bacteriuria - Patient denies any fever or urinary symptoms -Urine culture showed Escherichia coli that is ESBL, but the patient is asymptomatic so will not be treating it. # Normocytic anemia - Likely anemia of chronic disease due to rheumatoid arthritis - H&H stable - Monitor H&H # Hypokalemia - patient has 40meq of potassium supplement daily, but due to low potassium level this morning, was supplemented on top of it. - repleted again today orally # History of congestive heart failure - Patient on physical exam noted having bilateral crackles and trace pedal edema , lab shows elevated proBNP, suggesting CHF. She received 1 dose of IV Lasix - continue home dose Lasix 40 mg daily - Strict I/O's - Daily weight - Keep K > 4, mg > 2 repeat as needed # Rheumatoid arthritis - Continue weekly dose of methotrexate 15 mg - Continue prednisone 5 mg daily # Spinal stenosis - Continue pain management with fentanyl patch (decreased dose), Lidoderm patch, gabapentin - Bowel regimen to avoid constipation # Hypertension Continue home dose chlorthalidone, Lasix and metoprolol # Atrial fibrillation - Continue metoprolol 100 mg twice a day for rate control - Continue PRADEXA 150 mg twice a day for anticoagulation # Anxiety/depression Continue Xanax 0.125 at bedtime and Zoloft 2.5 mg daily # DVT prophylaxis on pradaxa # DNR/DNI Problem List: 1. Acute respiratory failure 2. Achalasia 3. Diplopia 4. Hypokalemia 5. Nausea & vomiting 6. Atrial fibrillation 7. Rheumatoid arthritis Pain Ratin Pain Location: - Pain Goal: Pain 4 or less Pain Plan: prn Tomorrow's Labs & Rationales: BEP to follow K
[2016-10-15 14:32] VITALS: BP 130/66
[2016-10-15 22:21] VITALS: BP 110/84
[2016-10-16 06:28] VITALS: BP 124/76
--- NOTE | 2016-10-16 08:34 | PN- Housestaff ---
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 Reports food is good, still had pain in her knees, dull, aching, chronic. Feels discomfort with swallowing without any significant aspiration. Review of Systems Constitutional: Reports: see HPI. Comments: ROS negative except the above Objective Last 24 Hrs of Vital Signs/I&O Vital Signs Date Time Temp Pulse Resp B/P B/P Pulse O2 O2 Flow FiO2 Mean Ox Delivery Rate 10/16 0628 97.8 65 20 124/76 96 05 0000 Nasal 3.0L Cannula 10/15 2221 97.1 66 18 110/84 96 Nasal 3.0L Cannula 10/15 2157 66 110/84 10/15 2009 98 Nasal 3.0L Cannula 10/15 1432 98.8 98 20 130/66 95 Nasal 3.0L Cannula 10/15 1145 72 112/764 10/15 1130 98 Nasal 3.0L Cannula Intake & Output 10/16 1600 10/16 0800 10/16 0000 Intake Total 240 Output Total 401 50 Balance -401 190 Intake, Oral 240 Output, Urine 401 50 Physical Exam General Appearance: Alert, Oriented X3, Cooperative Skin: No Rashes, No Breakdown HEENT: Atraumatic, PERRLA, EOMI Neck: Supple, No JVD Cardiovascular: Normal S1, Normal S2 Lungs: Normal Air Movement, decreased breath sounds at bases Abdomen: Normal Bowel Sounds, Soft, No Tenderness Neurological: Normal Tone, Sensation Intact, Cranial Nerves 3-12 NL Extremities: No Clubbing, No Cyanosis Vascular: Normal Pulses, Pulses Symmetrical Current Medications: Current Medications Sig/Dean Start time Last Medication Dose Route Stop Time Status Admin Albuterol Sulfate 3 ML Q4P PRN 10/13 2245 AC 10/15 INH 2009 Alprazolam 0.125 MG QPM 10/10 2199 AC 10/15 PO 10/17 Chlorthalidone 12.5 MG DAILY 10/11 1000 AC 10/15 PO 114 Dabigatran 150 MG BID 10/10 2199 AC 10/15 PO 215 Docusate Sodium 200 MG DAILY 10/11 1000 AC 10/15 PO 114 Fentanyl Citrate 50 MCG Q72H 10/11 1300 AC 10/14 TOP 1335 Folic Acid 1 MG DAILY 10/11 1000 AC 10/15 PO 1145 Furosemide 40 MG DAILY 10/11 1000 AC 10/15 PO 1145 Gabapentin 800 MG Q8 10/10 1400 AC 10/16 PO 0648 Lidocaine 1 PAT AT BEDTIME 10/15 2200 AC 10/15 EXT 2159 Lidocaine 1 PAT AT BEDTIME 10/10 2245 DC 10/14 EXT 2309 Magnesium Oxide 400 MG DAILY 10/10 1156 AC 10/15 PO 1145 Melatonin 6 MG QPM 10/10 2200 AC 10/15 PO 2157 Methotrexate 15 MG QWED 10/13 0700 AC PO Metoprolol Tartrate 100 MG BID 10/10 2200 AC 10/15 PO 2157 Omeprazole 40 MG DAILY AC 10/10 1201 AC 10/16 PO 0648 Ondansetron HCl 4 MG Q6P PRN 10/10 1215 AC 10/14 IV 1804 Patient Medication 1 ED ONE ONE 10/15 1400 DC Teaching ED 10/15 1401 Polyethylene Glycol 17 GM DAILY 10/13 1000 AC PO Potassium Chloride 40 MEQ ONCE ONE 10/15 1130 DC 10/15 PO 10/15 1131 1144 Potassium Chloride 40 MEQ DAILY 10/10 1157 AC 10/15 PO 1144 Prednisone 5 MG DAILY 10/10 1157 AC 10/15 PO 1146 Senna/Docusate Sodium 1 TAB BID PRN 10/10 1200 AC 10/12 PO 0605 Sertraline HCl 125 MG DAILY 10/10 1158 AC 10/15 PO 1147 Last 24 Hrs of Lab/Jerry Results Last 24 Hrs of Labs/Mics: Laboratory Tests 10/16/16 0615: Anion Gap 7, Estimated GFR > 60, BUN/Creatinine Ratio 23.3 Assessment/Plan Assessment: This is 89-year-old obese female with past medical history of diastolic heart failure, A. fib, rheumatoid arthritis on chronic methotrexate and prednisone, anemia, ESBL UTI, spinal stenosis was sent in from [facility] with chief complaint of unresponsiveness followed by an episode of bilious vomiting followed by an episode of hypoxia with significant increase in O2 requirement, and WBC suggestive of mild leukocytosis likely suggestive of aspiration pneumonitis/ pneumonia. Patient also noted having dirty urine on urinalysis which could be asymptomatic bacteriuria with chronic colonization of ESBL in absence of any urinary symptoms or fever. # Acute on chronic hypoxic respiratory failure, possibly due to Aspiration pneumonia, resolved Now at baseline oxygen 3L/day TRC/Nebs Follow off antibiotics continue Aspiration precaution patient passed swallow eval, is on regular diet currently repeat CXR shows left lower lobe haziness, but the patient is not symptomatic anymore and will not be pursuing only the images # Altered mental status, resolved - Likely in setting of opiates as patient is on fentanyl patch for spinal stenosis - decreased fentanyl dose from 75 to 50 on 10/11/16 and the patient is much alert since 10/12/16 - Monitor mental status, if noted further episode of change in mental status consider decreasing the dose of fentanyl patch or try nonopiate analgesics #Diplopia Patient had complained of double vision/diplopia on 10/12/2016 to the attending. CAT scan of the head without contrast did not reveal any bleeding or acute changes. Thus neurological consultation was not pressured any further. Pseudoachalasia - Continue Zofran when necessary for nausea - Patient was seen by Dr. Derian Turpin, veneer drier and she received upper GI series which revealed pseudoachalasia that can increase risk of aspiration. According to Dr. Dumont, she would benefit from upper GI endoscopy, but this can be done as an outpatient basis. - continue Aspiration precaution Asymptomatic bacteriuria - Patient denies any fever or urinary symptoms -Urine culture showed Escherichia coli that is ESBL, but the patient is asymptomatic so will not be treating it. Normocytic anemia - Likely anemia of chronic disease due to rheumatoid arthritis - H&H stable - Monitor H&H Hypokalemia - patient has 40meq of potassium supplement daily, but due to low potassium level this morning, was supplemented on top of it. - repleted again today orally # History of congestive heart failure - Patient on physical exam noted having bilateral crackles and trace pedal edema , lab shows elevated proBNP, suggesting CHF. She received 1 dose of IV Lasix - continue home dose Lasix 40 mg daily - Strict I/O's - Daily weight - Keep K > 4, mg > 2 repeat as needed # Rheumatoid arthritis - Continue weekly dose of methotrexate 15 mg - Continue prednisone 5 mg daily # Spinal stenosis - Continue pain management with fentanyl patch (decreased dose), Lidoderm patch, gabapentin - Bowel regimen to avoid constipation # Hypertension Continue home dose chlorthalidone, Lasix and metoprolol # Atrial fibrillation - Continue metoprolol 100 mg twice a day for rate control - Continue PRADEXA 150 mg twice a day for anticoagulation # Anxiety/depression Continue Xanax 0.125 at bedtime and Zoloft 2.5 mg daily stable for discharge today. # DVT prophylaxis on pradaxa # DNR/DNI Problem List: 1. Achalasia 2. Aspiration into airway 3. Aspiration pneumonia 4. Fall Pain Ratin Pain Location: knees Pain Goal: Pain 4 or less Pain Plan: fentanyl patch Tomorrow's Labs & Rationales: bep to monitor potassium LISETTE MUNGUIA MD 10/16/16 1347: Attending MD Review Statement Attending Statement Attending MD Statement: examined this patient, discuss w/resident/PA/HOSE MAKER, agreed w/resident/PA/HOSE MAKER, reviewed EMR data (avail), amended to note Attending Assessment/Plan: Ms. Santos was interviewed, examined, and her EHR reviewed. At this point in her hospitalization she is stable for discharge. Her CMR was reviewed and signed.
[2016-10-16 14:44] VITALS: BP 124/76
[2016-10-16 14:45] VITALS: BP 130/70
== END 2016-10-16 17:15 | DRG 177 ==
LOC: DELPENDDIS → ERH 08:48 → 2NB 12:06 → ERHI 12:06 → ENRESERV 12:46 → 2NB 13:30 → ENPENDDIS 10-12 13:29 → 2NB 10-16 17:15
PROVIDERS: Emergency Medicine; Internal Medicine; ADMIT Internal Medicine
DX: J69.0 Pneumonitis due to inhalation of food and vomit (principal); J96.21 Acute and chronic respiratory failure with hypoxia; I11.0 Hypertensive heart disease with heart failure; I50.32 Chronic diastolic (congestive) heart failure; Z99.81 Dependence on supplemental oxygen; I48.91 Unspecified atrial fibrillation; K22.0 Achalasia of cardia; M06.9 Rheumatoid arthritis, unspecified; D64.9 Anemia, unspecified; E66.9 Obesity, unspecified; Z68.31 Body mass index [BMI] 31.0-31.9, adult; Z79.01 Long term (current) use of anticoagulants; M48.00 Spinal stenosis, site unspecified; F41.8 Other specified anxiety disorders; Z66 Do not resuscitate; K52.89 Other specified noninfective gastroenteritis and colitis; H53.2 Diplopia
CPT/HCPCS: 2NBP; 2NBSP; 36415; 74240; 81001; 82436; 87040; 87070; 87086; 93005; 93010; 96361; 96374; 96375; J1644; J1940; J2405; J3370; J3490; J7040; J7512; J8610